=== PATIENT | male | born 1945 | race American Indian/Alaskan Native ===

== ENCOUNTER 2018-09-02 08:18 | Inpatient (IN) | payer BC, MEDICARE ==
--- NOTE | 2018-09-02 08:45 | ED PDOC ---
Arrival/HPI - General Time Seen by Provider: 09/02/18 08:29 Historian: Patient - History of Present Illness Narrative History of Present Illness (Text): 09/02/18 08:33 73 year old male, whose past medical history includes hypertension, who presents to the Emergency department complaining of "feeling weird". Patient notes chest pain. Patient recently came back from the [facility] and notes symptoms occurred after return. Patient denies any fever, chills, shortness of breath, nausea, vomiting, diarrhea, back pain, neck pain, headache, dizziness, or any other complaints. Time/Duration: < week Symptom Onset: Gradual Symptom Course: Unchanged Activities at Onset: Light Context: Home Past Medical History - Provider Review Nursing Documentation Reviewed: Yes - Travel History Have you recently traveled outside [place] w/in the past 3 mons?: Yes If Yes, travel location?: [facility] Family/Social History - Physician Review Nursing Documentation Reviewed: Yes Allergies/Home Meds Allergies/Adverse Reactions: Allergies No Known Allergies Allergy (Verified 09/02/18 08:44) Home Medications: Home Meds Medication Instructions Recorded Confirmed Htn Med 09/02/18 Review of Systems - Physician Review All systems were reviewed & negative as marked: Yes - Review of Systems Constitutional: Normal Eyes: Normal ENT: Normal Respiratory: Normal. absent: SOB, Cough Cardiovascular: Chest Pain Gastrointestinal: Normal. absent: Abdominal Pain, Diarrhea, Nausea, Vomiting Genitourinary Male: Normal Musculoskeletal: Normal. absent: Back Pain, Neck Pain Skin: Normal. absent: Rash Neurological: Normal. absent: Headache, Dizziness Endocrine: Normal Hemo/Lymphatic: Normal Psychiatric: Normal Physical Exam Pulse: Tachycardic - Systems Exam Head: Present: Atraumatic, Normocephalic Pupils: Present: PERRL Extroacular Muscles: Present: EOMI Conjunctiva: Present: Normal Mouth: Present: Moist Mucous Membranes Neck: Present: Normal Range of Motion Respiratory/Chest: Present: Clear to Auscultation, Good Air Exchange. No: Respiratory Distress, Accessory Muscle Use Cardiovascular: Present: Regular Rate and Rhythm, Normal S1, S2. No: Murmurs Abdomen: No: Tenderness, Distention, Peritoneal Signs Back: Present: Normal Inspection Upper Extremity: Present: Normal Inspection. No: Cyanosis, Edema Lower Extremity: Present: Normal Inspection. No: Edema Neurological: Present: GCS=15, CN II-XII Intact, Speech Normal Skin: Present: Warm, Dry, Normal Color. No: Rashes Psychiatric: Present: Alert, Oriented x 3, Normal Insight, Normal Concentration Medical Decision Making ED Course and Treatment: 09/02/18 08:45 Impression: 73 year old male presents to the Emergency department complaining of 'feeling weird" since return from [facility]. Plan: -- EKG -- Aspirin -- CXR -- Cardizem -- Heparin -- UA -- Caridac ISO -- CT Head -- Reassess and disposition Progress Notes: EKG reviewed, shows tachycardia A flutter at 134 bpm. 09/02/18 09:39 CT Head reviewed, shows: IMPRESSION: No acute intracranial pathology. 09/02/18 09:53 CXR reviewed, shows: IMPRESSION: No active disease. - Scribe Statement The provider has reviewed the documentation as recorded by the Scribmelissa Larson All medical record entries made by the Scribmelissa were at my direction and personally dictated by me. I have reviewed the chart and agree that the record accurately reflects my personal performance of the history, physical exam, medical decision making, and the department course for this patient. I have also personally directed, reviewed, and agree with the discharge instructions and disposition.
[2018-09-02 08:50] LABS: BASO # 0.02 K/mm3 (0.0-2.0); BASO % 0.2 % (0.0-3.0); EOS # 0.1 (0.0-0.7); EOS % 0.8 % (1.5-5.0); GRAN # 8.38 (1.4-6.5); GRAN % 64.4 % (50.0-68.0); HEMOGLOBIN 16.1 g/dL (14.0-18.0); LYMPH # 2.7 (1.2-3.4); LYMPH % 20.5 % (22.0-35.0); MEAN CELL VOLUME 89.2 fl (80.0-105.0); MEAN CORPUSCULAR HEMOGLOBIN 29.5 pg (25.0-35.0); MEAN CORPUSCULAR HGB CONC 33.1 g/dl (31.0-37.0); MONO # 1.8 (0.1-0.6); MONO % 14.1 % (1.0-6.0); RBC 5.45 10^6/uL (3.5-6.1); RED CELL DISTRIBUTION WIDTH 13.7 % (11.5-14.5)
[2018-09-02 08:58] LABS: INR 1.12; PROTHROMBIN TIME 12.9 SECONDS (9.4-12.5)
[2018-09-02 09:03] LABS: ALBUMIN 4.1 g/dL (3.0-4.8); CALCIUM 9.4 mg/dL (8.4-10.5)
[2018-09-02 09:22] LABS: TROPONIN I 4.93 ng/mL
--- NOTE | 2018-09-02 09:35 | CT ---
Date of service: 09/02/2018 PROCEDURE: CT HEAD WITHOUT CONTRAST. HISTORY: martinez COMPARISON: None available. TECHNIQUE: Axial computed tomography images were obtained through the head/brain without intravenous contrast. Radiation dose: Total exam DLP = 936.72 mGy-cm. This CT exam was performed using one or more of the following dose reduction techniques: Automated exposure control, adjustment of the mA and/or kV according to patient size, and/or use of iterative reconstruction technique. FINDINGS: HEMORRHAGE: No intracranial hemorrhage. BRAIN: No mass effect or edema. Atrophy. Chronic microvascular ischemic changes. VENTRICLES: Unremarkable. No hydrocephalus. CALVARIUM: Unremarkable. PARANASAL SINUSES: Unremarkable as visualized. No significant inflammatory changes. MASTOID AIR CELLS: Unremarkable as visualized. No inflammatory changes. OTHER FINDINGS: None. IMPRESSION: No acute intracranial pathology.
[2018-09-02 09:42] LABS: URINE BILIRUBIN NEGATIVE (NEGATIVE); URINE BLOOD MODERATE (NEGATIVE); URINE GLUCOSE (UA) NEGATIVE (NEGATIVE); URINE LEUKOCYTE ESTERASE NEGATIVE Leu/uL (NEGATIVE); URINE PROTEIN 100 mg/dL (<30 mg/dL); URINE UROBILINOGEN 0.2 E.U./dL (<1 E.U./dL)
--- NOTE | 2018-09-02 09:43 | RAD ---
Date of service: 09/02/2018 HISTORY: cp COMPARISON: No prior. FINDINGS: LUNGS: No active pulmonary disease. PLEURA: No significant pleural effusion identified, no pneumothorax apparent. CARDIOVASCULAR: Aortic atherosclerotic calcifications. Cardiomediastinal silhouette stably enlarged OSSEOUS STRUCTURES: Spinal degenerative changes. VISUALIZED UPPER ABDOMEN: Normal. OTHER FINDINGS: None. IMPRESSION: No active disease.
[2018-09-02] MEDS ORDERED: Heparin25000 units/250ml 1/2NS 25,000 UNITS/250 ML BAG IV SCH ×2 (09:45→10:00)
[2018-09-02 09:48] LABS: URINE COLOR YELLOW (YELLOW)
[2018-09-02 09:51] LABS: URINE APPEARANCE CLEAR (CLEAR); URINE BACTERIA FEW /hpf; URINE EPITHELIAL CELLS 0 - 2 /hpf (0-5); URINE WBC 0 - 2 /hpf (0-6)
--- NOTE | 2018-09-02 10:05 | CP.PCM.HP ---
<BrianaRo soliman - Last Filed: 09/02/18 10:51> History of Present Illness - History of Present Illness History of Present Illness: H&P for HospitalistGrabiel PGY3 This is a 73yo M with past medical history of Hypertension who came to emergency department for "not feeling right" since Monday. Patient reports that he has not been feeling right, but has been worse last night. He had a rising abdominal pain, R sided chest pain and lightheadedness. He has never had those symptoms before. Patient states he took 2 baby aspirin last night without any help. He denies shortness of breath, nausea/vomiting/diarrhea, numbness/tingling, dysuria/hematuria, fever or chills. Patient was recently on trip to [facility] and came back 1 week ago. Patient reports he is compliant with his medications and has not seen a plant wrapper in the past. Past medical history: HTN Past surgical history: Denies Home meds: [id number]-Byzdxrhlka combo pill (06-28-40) Allergies: NKDA Social history: Used to smoke cigarettes, now smokes 1 black&graham daily, drinks 1-2 mixed drink of white rum daily, denies drug use. Lives with family. 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 siblings are healthy PMD: Dr. Dorantes (hasn't seen for after he ) Pharm: Ayleen Seaman ([id number]) Present on Admission - Present on Admission Any Indicators Present on Admission: No Review of Systems - Review of Systems All systems: reviewed and no additional remarkable complaints except Review of Systems: 12 point ROS reviewed as per HPI and is otherwise negative. Past Patient History - Past Social History Smoking Status: Never Smoked - CARDIAC Hx Hypertension: Yes - PSYCHIATRIC Hx Substance Use: No - SURGICAL HISTORY Hx Surgeries: No Meds Allergies/Adverse Reactions: Allergies Allergy/AdvReac Type Severity Reaction Status Date / Time No Known Allergies Allergy Verified 09/02/18 08:44 Physical Exam - Constitutional Appears: No Acute Distress - Head Exam Head Exam: ATRAUMATIC, NORMAL INSPECTION, NORMOCEPHALIC - Eye Exam Eye Exam: Normal appearance, PERRL Pupil Exam: NORMAL ACCOMODATION - ENT Exam ENT Exam: Mucous Membranes Moist - Neck Exam Neck exam: Positive for: Normal Inspection - Respiratory Exam Respiratory Exam: Clear to Auscultation Bilateral, NORMAL BREATHING PATTERN. absent: Rales, Rhonchi, Wheezes - Cardiovascular Exam Cardiovascular Exam: Tachycardia, Irregular Rhythm, +S1, +S2. absent: Gallop, Rubs, Systolic Murmur - GI/Abdominal Exam GI & Abdominal Exam: Normal Bowel Sounds, Soft. absent: Guarding, Mass, Rebo und, Rigid, Tenderness - Extremities Exam Extremities exam: Positive for: full ROM, normal capillary refill, normal inspection, pedal pulses present. Negative for: calf tenderness, pedal edema - Neurological Exam Neurological exam: Alert, CN II-XII Intact, Oriented x3 - Psychiatric Exam Psychiatric exam: Normal Affect, Normal Mood - Skin Skin Exam: Dry, Intact, Warm Results - Vital Signs Recent Vital Signs: Last Vital Signs Temp 98.0 F 09/02/18 08:34 Pulse 104 H 09/02/18 09:59 Resp 20 09/02/18 09:59 BP 127/80 09/02/18 09:59 Pulse Ox 98 09/02/18 09:59 - Labs Result Diagrams: 09/02/18 08:40 09/02/18 08:40 Labs: Laboratory Results - last 24 hr 09/02/18 09/02/18 09/02/18 08:40 08:40 08:40 WBC 13.0 H RBC 5.45 Hgb 16.1 Hct 48.6 MCV 89.2 MCH 29.5 MCHC 33.1 RDW 13.7 Plt Count 195 MPV 11.0 Gran % 64.4 Lymph % (Auto) 20.5 L [place] % (Auto) 14.1 H Eos % (Auto) 0.8 L Baso % (Auto) 0.2 Gran # 8.38 H Lymph # (Auto) 2.7 [place] # (Auto) 1.8 H Eos # (Auto) 0.1 Baso # (Auto) 0.02 PT 12.9 H INR 1.12 APTT 31.0 Sodium 137 Potassium 4.3 Chloride 102 Carbon Dioxide 29 Anion Gap 11 BUN 22 H Creatinine 1.6 H Est GFR ( Amer) 52 Est GFR (Non-Af Amer) 43 Random Glucose 160 H Calcium 9.4 Magnesium 2.2 Total Bilirubin 0.8 AST 50 ALT 32 Alkaline Phosphatase 103 Lactate Dehydrogenase 629 Total Creatine Kinase 119 Troponin I 4.93 H* Total Protein 8.1 Albumin 4.1 Globulin 4.0 Albumin/Globulin Ratio 1.0 L Urine Color Urine Appearance Urine pH Ur Specific Bradley Urine Protein Urine Glucose (UA) Urine Ketones Urine Blood Urine Nitrate Urine Bilirubin Urine Urobilinogen Ur Leukocyte Esterase Urine RBC Urine WBC Ur Epithelial Cells Urine Bacteria 09/02/18 09:30 WBC RBC Hgb Hct MCV MCH MCHC RDW Plt Count MPV Gran % Lymph % (Auto) [place] % (Auto) Eos % (Auto) Baso % (Auto) Gran # Lymph # (Auto) [place] # (Auto) Eos # (Auto) Baso # (Auto) PT INR APTT Sodium Potassium Chloride Carbon Dioxide Anion Gap BUN Creatinine Est GFR ( Amer) Est GFR (Non-Af Amer) Random Glucose Calcium Magnesium Total Bilirubin AST ALT Alkaline Phosphatase Lactate Dehydrogenase Total Creatine Kinase Troponin I Total Protein Albumin Globulin Albumin/Globulin Ratio Urine Color Yellow Urine Appearance Clear Urine pH 6.0 Ur Specific Bradley >= 1.030 Urine Protein 100 H Urine Glucose (UA) Negative Urine Ketones Negative Urine Blood Moderate H Urine Nitrate Negative Urine Bilirubin Negative Urine Urobilinogen 0.2 Ur Leukocyte Esterase Negative Urine RBC 5 - 10 H Urine WBC 0 - 2 Ur Epithelial Cells 0 - 2 Urine Bacteria Few Assessment & Plan - Assessment and Plan (Free Text) Assessment: This is a 73yo M with past medical history of Hypertension who was admitted for 1. NSTEMI - can be secondary to new onset a.flutter 2. A.flutter (New onset) 3. BRENDA (Mild) - baseline Cr unknown Plan: Labs and imaging reviewed. Head CT negative. EKG showed a.flutter with HR of 134. He was given 1 dose Cardizem IVP in emergency department. Cardiology consulted. Spoke with Dr. Berumen will start patient on Heparin drip. Will trend troponin. Echo, lipid panel, A1c, and thyroid studies ordered. Lopressor prn HR >120 with BP holding parameters. Will continue ASA 81mg. Tylenol prn headache. Patient is NPO at this time and will continue to monitor Cr. Patient was accepted to ICU for further monitoring. Case seen, reviewed and discussed with Dr. Malik Mchugh PGY3 - Date & Time Date: 09/02/18 Time: 11:04 <Jad Gan - Last Filed: 09/02/18 17:05> Results - Vital Signs Recent Vital Signs: Last Vital Signs Temp 100.7 F H 09/02/18 13:27 Pulse 100 H 09/02/18 13:28 Resp 18 09/02/18 11:40 BP 148/80 09/02/18 13:28 Pulse Ox 97 09/02/18 11:04 - Labs Result Diagrams: 09/02/18 08:40 09/02/18 08:40 Labs: Laboratory Results - last 24 hr 09/02/18 09/02/18 09/02/18 08:40 08:40 08:40 WBC 13.0 H RBC 5.45 Hgb 16.1 Hct 48.6 MCV 89.2 MCH 29.5 MCHC 33.1 RDW 13.7 Plt Count 195 MPV 11.0 Gran % 64.4 Lymph % (Auto) 20.5 L [place] % (Auto) 14.1 H Eos % (Auto) 0.8 L Baso % (Auto) 0.2 Gran # 8.38 H Lymph # (Auto) 2.7 [place] # (Auto) 1.8 H Eos # (Auto) 0.1 Baso # (Auto) 0.02 PT 12.9 H INR 1.12 APTT 31.0 Sodium 137 Potassium 4.3 Chloride 102 Carbon Dioxide 29 Anion Gap 11 BUN 22 H Creatinine 1.6 H Est GFR ( Amer) 52 Est GFR (Non-Af Amer) 43 POC Glucose (mg/dL) Random Glucose 160 H Hemoglobin A1c Calcium 9.4 Magnesium 2.2 Total Bilirubin 0.8 AST 50 ALT 32 Alkaline Phosphatase 103 Lactate Dehydrogenase 629 Total Creatine Kinase 119 Troponin I 4.93 H* Total Protein 8.1 Albumin 4.1 Globulin 4.0 Albumin/Globulin Ratio 1.0 L Triglycerides Cholesterol LDL Cholesterol Direct HDL Cholesterol Free T4 TSH 3rd Generation Urine Color Urine Appearance Urine pH Ur Specific Bradley Urine Protein Urine Glucose (UA) Urine Ketones Urine Blood Urine Nitrate Urine Bilirubin Urine Urobilinogen Ur Leukocyte Esterase Urine RBC Urine WBC Ur Epithelial Cells Urine Bacteria Alcohol, Quantitative 09/02/18 09/02/18 09/02/18 08:40 08:40 08:40 WBC RBC Hgb Hct MCV MCH MCHC RDW Plt Count MPV Gran % Lymph % (Auto) [place] % (Auto) Eos % (Auto) Baso % (Auto) Gran # Lymph # (Auto) [place] # (Auto) Eos # (Auto) Baso # (Auto) PT INR APTT Sodium Potassium Chloride Carbon Dioxide Anion Gap BUN Creatinine Est GFR ( Amer) Est GFR (Non-Af Amer) POC Glucose (mg/dL) Random Glucose Hemoglobin A1c 6.5 Calcium Magnesium Total Bilirubin AST ALT Alkaline Phosphatase Lactate Dehydrogenase Total Creatine Kinase Troponin I Total Protein Albumin Globulin Albumin/Globulin Ratio Triglycerides 76 Cholesterol 157 LDL Cholesterol Direct 84 HDL Cholesterol 40 Free T4 1.62 TSH 3rd Generation 1.77 Urine Color Urine Appearance Urine pH Ur Specific Bradley Urine Protein Urine Glucose (UA) Urine Ketones Urine Blood Urine Nitrate Urine Bilirubin Urine Urobilinogen Ur Leukocyte Esterase Urine RBC Urine WBC Ur Epithelial Cells Urine Bacteria Alcohol, Quantitative 09/02/18 09/02/18 09/02/18 08:40 09:30 15:31 WBC RBC Hgb Hct MCV MCH MCHC RDW Plt Count MPV Gran % Lymph % (Auto) [place] % (Auto) Eos % (Auto) Baso % (Auto) Gran # Lymph # (Auto) [place] # (Auto) Eos # (Auto) Baso # (Auto) PT INR APTT 56.5 H Sodium Potassium Chloride Carbon Dioxide Anion Gap BUN Creatinine Est GFR ( Amer) Est GFR (Non-Af Amer) POC Glucose (mg/dL) Random Glucose Hemoglobin A1c Calcium Magnesium Total Bilirubin AST ALT Alkaline Phosphatase Lactate Dehydrogenase Total Creatine Kinase Troponin I Total Protein Albumin Globulin Albumin/Globulin Ratio Triglycerides Cholesterol LDL Cholesterol Direct HDL Cholesterol Free T4 TSH 3rd Generation Urine Color Yellow Urine Appearance Clear Urine pH 6.0 Ur Specific Bradley >= 1.030 Urine Protein 100 H Urine Glucose (UA) Negative Urine Ketones Negative Urine Blood Moderate H Urine Nitrate Negative Urine Bilirubin Negative Urine Urobilinogen 0.2 Ur Leukocyte Esterase Negative Urine RBC 5 - 10 H Urine WBC 0 - 2 Ur Epithelial Cells 0 - 2 Urine Bacteria Few Alcohol, Quantitative < 10 09/02/18 09/02/18 15:31 16:18 WBC RBC Hgb Hct MCV MCH MCHC RDW Plt Count MPV Gran % Lymph % (Auto) [place] % (Auto) Eos % (Auto) Baso % (Auto) Gran # Lymph # (Auto) [place] # (Auto) Eos # (Auto) Baso # (Auto) PT INR APTT Sodium Potassium Chloride Carbon Dioxide Anion Gap BUN Creatinine Est GFR ( Amer) Est GFR (Non-Af Amer) POC Glucose (mg/dL) 134 H Random Glucose Hemoglobin A1c Calcium Magnesium Total Bilirubin AST ALT Alkaline Phosphatase Lactate Dehydrogenase Total Creatine Kinase Troponin I 3.70 H* D Total Protein Albumin Globulin Albumin/Globulin Ratio Triglycerides Cholesterol LDL Cholesterol Direct HDL Cholesterol Free T4 TSH 3rd Generation Urine Color Urine Appearance Urine pH Ur Specific Bradley Urine Protein Urine Glucose (UA) Urine Ketones Urine Blood Urine Nitrate Urine Bilirubin Urine Urobilinogen Ur Leukocyte Esterase Urine RBC Urine WBC Ur Epithelial Cells Urine Bacteria Alcohol, Quantitative Attending/Attestation - Attestation I have personally seen and examined this patient.: Yes I have fully participated in the care of the patient.: Yes I have reviewed all pertinent clinical information: Yes Notes (Text): 09/02/18 17:01 attending note; Patient seen and examined with resident In ER. Patient's family by the bedside. Patient is alert and awake. Currently denies any chest pain, shortness of breath and palpitations. Denies any nausea, vomiting. Denies any fevers, chills. Denies any urinary, bowel symptoms. Patient is a 73 -year-old male with past medical history of Hypertension who came to emergency department for "not feeling right" since Monday. He had a rising abdominal pain, R sided chest pain and lightheadedness. found to have rapid atrial fibrillation and elevated troponin in the ER. 1. Rapid atrial fibrillation; new onset. IV Cardizem given. Continue to monitor the heart rate closely. Started on amiodarone. 2. Elevated troponin with EKG changes; EKG reviewed with plant wrapper in detail. Continue aspirin, Plavix, on IV heparin drip. 3. Hypertension; continue metoprolol, Cozaar. 4. elevated creatinine;Baseline creatinine level is not known. Possible acute renal insufficiency. Started on IV fluids. Monitor closely. Case discussed with plant wrapper in detail. Plan for Cardiac catheterization in a.m. upon discharge the patient will follow-up with PMD .
[2018-09-02] MEDS ORDERED: Metoprolol 1 mg/ml Inj IVP PRN (10:48)
[2018-09-02 10:59] LABS: HDL CHOLESTEROL 40 mg/dL (29-60)
[2018-09-02 11:09] LABS: LDL CHOLESTEROL 84 mg/dL (0-129)
[2018-09-02 11:20] LABS: FREE T4 1.62 ng/dL (0.78-2.19)
--- NOTE | 2018-09-02 12:24 | CP.PCM.CON ---
<Lucio Clay - Last Filed: 09/02/18 13:02> History of Present Illness - History of Present Illness History of Present Illness: Lucio Clay, PGY-1 Consult Note for ICU CC: Chest Pain and Head numbness HPI: Mr. Quiroz is a 73yo M with past medical history of essential hypertension currently medicated (and compliant) who came to the ED after experiencing R sided substernal chest pain at 4 am this morning when he awoke to urinate. Patient denies radiation and has never had these symptoms before. Patient states he took 2 baby aspirin overnight which did not resolve the chest pain. Patient states that he has had associated joint pains and experiencing head numbness since Monday, but has never been seen by a push button switch assembler. Patient denies familial cardiac history. Currently, patient complains of intermittent constipation but denies shortness of breath, nausea/vomiting/diarrhea, numb ness/tingling, dysuria/hematuria, fever, chills, headache, blurry vision. Patient recently returned from a trip to [facility] last week, at which point he felt fine. Multiple family members present at bedside to help fill in information as needed. Past medical history: HTN Past surgical history: Denies Home meds: [id number] combo pill (06-28-40) Allergies: NKDA Social history: Used to smoke cigarettes for >30 years, now smokes 1 black&graham daily, drinks 2-3 mixed shots daily, denies drug use. Lives with family. 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 PMD: Dr. Dorantes (hasn't seen for after he ) Pharm: Ayleen Seaman ([address]) Review of Systems - Review of Systems Review of Systems: 12 point ROS completed and negative except as described in HPI. Past Patient History - Past Social History Smoking Status: Never Smoked - CARDIAC Hx Hypertension: Yes - PSYCHIATRIC Hx Substance Use: No - SURGICAL HISTORY Hx Surgeries: No Meds Allergies/Adverse Reactions: Allergies Allergy/AdvReac Type Severity Reaction Status Date / Time No Known Allergies Allergy Verified 09/02/18 08:44 - Medications Medications: Current Medications Acetaminophen (Tylenol 325mg Tab) 650 mg PO Q6H PRN PRN Reason: Headache Aspirin (Aspirin Chewable) 81 mg PO DAILY [facility] Heparin Sodium/Sodium Chloride (Heparin 10262 Units/250ml 1/2 Normal Saline) 25,000 units in 250 mls @ 11.235 mls/hr IV .[id number] [facility]; Protocol Last Admin: 09/02/18 10:06 Dose: 11.235 mls/hr Metoprolol Tartrate (Lopressor) 5 mg IVP Q6H PRN PRN Reason: Heart rate Last Admin: 09/02/18 11:00 Dose: 5 mg Physical Exam - Additional Findings Additional findings: - Constitutional Appears: No Acute Distress - Head Exam Head Exam: ATRAUMATIC, NORMAL INSPECTION, NORMOCEPHALIC - Eye Exam Eye Exam: Normal appearance, PERRL Pupil Exam: NORMAL ACCOMODATION - ENT Exam ENT Exam: Mucous Membranes Moist - Neck Exam Neck exam: Positive for: Normal Inspection - Respiratory Exam Respiratory Exam: Clear to Auscultation Bilateral, NORMAL BREATHING PATTERN. absent: Rales, Rhonchi, Wheezes - Cardiovascular Exam Cardiovascular Exam: Tachycardia, Irregular Rhythm, +S1, +S2. absent: Gallop, Rubs, Systolic Murmur - GI/Abdominal Exam GI & Abdominal Exam: Normal Bowel Sounds, Soft. absent: Guarding, Mass, Rebound, Rigid, Tenderness - Extremities Exam Extremities exam: Positive for: full ROM, normal capillary refill, normal inspection, pedal pulses present. Negative for: calf tenderness, pedal edema - Neurological Exam Neurological exam: Alert, CN II-XII Intact, Oriented x3 - Psychiatric Exam Psychiatric exam: Normal Affect, Normal Mood - Skin Skin Exam: Dry, Intact, Warm Results - Vital Signs Recent Vital Signs: Last Vital Signs Temp 98.0 F 09/02/18 08:34 Pulse 108 H 09/02/18 11:04 Resp 20 09/02/18 11:04 BP 150/77 09/02/18 11:04 Pulse Ox 97 09/02/18 11:04 - Labs Result Diagrams: 09/02/18 08:40 09/02/18 08:40 Labs: Laboratory Results - last 24 hr 09/02/18 09/02/18 09/02/18 08:40 08:40 08:40 WBC 13.0 H RBC 5.45 Hgb 16.1 Hct 48.6 MCV 89.2 MCH 29.5 MCHC 33.1 RDW 13.7 Plt Count 195 MPV 11.0 Gran % 64.4 Lymph % (Auto) 20.5 L [place] % (Auto) 14.1 H Eos % (Auto) 0.8 L Baso % (Auto) 0.2 Gran # 8.38 H Lymph # (Auto) 2.7 [place] # (Auto) 1.8 H Eos # (Auto) 0.1 Baso # (Auto) 0.02 PT 12.9 H INR 1.12 APTT 31.0 Sodium 137 Potassium 4.3 Chloride 102 Carbon Dioxide 29 Anion Gap 11 BUN 22 H Creatinine 1.6 H Est GFR ( Amer) 52 Est GFR (Non-Af Amer) 43 Random Glucose 160 H Calcium 9.4 Magnesium 2.2 Total Bilirubin 0.8 AST 50 ALT 32 Alkaline Phosphatase 103 Lactate Dehydrogenase 629 Total Creatine Kinase 119 Troponin I 4.93 H* Total Protein 8.1 Albumin 4.1 Globulin 4.0 Albumin/Globulin Ratio 1.0 L Triglycerides Cholesterol LDL Cholesterol Direct HDL Cholesterol Free T4 TSH 3rd Generation Urine Color Urine Appearance Urine pH Ur Specific [place] Urine Protein Urine Glucose (UA) Urine Ketones Urine Blood Urine Nitrate Urine Bilirubin Urine Urobilinogen Ur Leukocyte Esterase Urine RBC Urine WBC Ur Epithelial Cells Urine Bacteria 09/02/18 09/02/18 09/02/18 08:40 08:40 09:30 WBC RBC Hgb Hct MCV MCH MCHC RDW Plt Count MPV Gran % Lymph % (Auto) [place] % (Auto) Eos % (Auto) Baso % (Auto) Gran # Lymph # (Auto) [place] # (Auto) Eos # (Auto) Baso # (Auto) PT INR APTT Sodium Potassium Chloride Carbon Dioxide Anion Gap BUN Creatinine Est GFR ( Amer) Est GFR (Non-Af Amer) Random Glucose Calcium Magnesium Total Bilirubin AST ALT Alkaline Phosphatase Lactate Dehydrogenase Total Creatine Kinase Troponin I Total Protein Albumin Globulin Albumin/Globulin Ratio Triglycerides 76 Cholesterol 157 LDL Cholesterol Direct 84 HDL Cholesterol 40 Free T4 1.62 TSH 3rd Generation 1.77 Urine Color Yellow Urine Appearance Clear Urine pH 6.0 Ur Specific [place] >= 1.030 Urine Protein 100 H Urine Glucose (UA) Negative Urine Ketones Negative Urine Blood Moderate H Urine Nitrate Negative Urine Bilirubin Negative Urine Urobilinogen 0.2 Ur Leukocyte Esterase Negative Urine RBC 5 - 10 H Urine WBC 0 - 2 Ur Epithelial Cells 0 - 2 Urine Bacteria Few Assessment & Plan - Assessment and Plan (Free Text) Assessment: Mr. Quiroz is a 73 F with PMHx of HTN who presents with irregular cardiac rhythm and NSTEMI. Neuro 09/02/[address] negative: No acute intracranial pathology. - AAOx3 - CIWA protocol 2/2 chronic ETOH use - Aspiration precautions - continue to monitor Cardio 09/02/18 CXR shows Aortic atherosclerotic calcifications. Cardiomediastinal silhouette stably enlarged 09/02/18 EKG showed Atrial flutter with HR of 134. Given 20 mg Cardizem IVP and ASA 325 mg in ED - Cardiology consulted. Dr. Berumen - plan for cardiac cath tomorrow morning - Trop 4.93, continue to trend x2 - Heparin drip until 2 am tomorrow morning - Echo pending - Lipid panel, A1c, and thyroid studies pending - Lopressor 50 mg BID with BP holding parameters. - ASA 81mg, Plavix 75 mg, Lipitor 20 mg PO, Losartan 25 mg PO - Amiodarone 400 TID for A. flutter - UDS, Serum ETOH pending - Tylenol 650 q6 PRN for pain control - F/u coag studies - maintain MAP > 65 Nephro - BRENDA 25/09.6 - baseline unknown - UDS pending - Hold all nephrotoxic meds - Begin NS @ 100 cc/hr in AM - continue to monitor in AM CMP Pulm - HOB>35 degrees - Maintain O2> 92% PPx - GI: Pepcid 40 mg PO at bedtime - DVT: SCDs, Hep drip Patient seen, case reviewed and plan approved by Dr. Ar Cardona. Lucio Clay, PGY-1 <Lele Cardona - Last Filed: 09/02/18 17:33> Meds - Medications Medications: Current Medications Acetaminophen (Tylenol 325mg Tab) 650 mg PO Q6H PRN PRN Reason: Headache Last Admin: 09/02/18 13:27 Dose: 650 mg Alprazolam (Xanax) 0.5 mg PO ONCE PRN; Protocol PRN Reason: Anxiety Amiodarone HCl (Cordarone) 400 mg PO TID [facility] Stop: 09/03/18 23:59 Last Admin: 09/02/18 17:13 Dose: 400 mg Amiodarone HCl (Cordarone) 200 mg PO DAILY [facility] Aspirin (Aspirin Chewable) 81 mg PO DAILY [facility] Atorvastatin Calcium (Lipitor) 20 mg PO DIN [facility] Last Admin: 09/02/18 17:12 Dose: 20 mg Clopidogrel Bisulfate (Plavix) 75 mg PO DAILY [facility] Famotidine (Pepcid) 40 mg PO HS [facility] Heparin Sodium/Sodium Chloride (Heparin 60433 Units/250ml 1/2 Normal Saline) 25,000 units in 250 mls @ 11.235 mls/hr IV .[id number] [facility]; Protocol Stop: 09/03/18 02:00 Last Admin: 09/02/18 10:06 Dose: 11.235 mls/hr Sodium Chloride (Sodium Chloride 0.9%) 1,000 mls @ 100 mls/hr IV .Q10H [facility] Insulin Human Regular (Humulin R Low) 0 units SC ACHS [facility]; Protocol Last Admin: 09/02/18 17:11 Dose: Not Given Losartan Potassium (Cozaar) 25 mg PO DAILY [facility] Metoprolol Tartrate (Lopressor) 5 mg IVP Q6H PRN PRN Reason: Heart rate Last Admin: 09/02/18 11:00 Dose: 5 mg Metoprolol Tartrate (Lopressor) 50 mg PO BID [facility] Last Admin: 09/02/18 17:12 Dose: 50 mg Results - Vital Signs Recent Vital Signs: Last Vital Signs Temp 100.7 F H 09/02/18 13:27 Pulse 98 H 09/02/18 17:13 Resp 18 09/02/18 11:40 BP 133/96 H 09/02/18 17:13 Pulse Ox 97 09/02/18 11:04 - Labs Result Diagrams: 09/02/18 08:40 09/02/18 08:40 Labs: Laboratory Results - last 24 hr 09/02/18 09/02/18 09/02/18 08:40 08:40 08:40 WBC 13.0 H RBC 5.45 Hgb 16.1 Hct 48.6 MCV 89.2 MCH 29.5 MCHC 33.1 RDW 13.7 Plt Count 195 MPV 11.0 Gran % 64.4 Lymph % (Auto) 20.5 L [place] % (Auto) 14.1 H Eos % (Auto) 0.8 L Baso % (Auto) 0.2 Gran # 8.38 H Lymph # (Auto) 2.7 [place] # (Auto) 1.8 H Eos # (Auto) 0.1 Baso # (Auto) 0.02 PT 12.9 H INR 1.12 APTT 31.0 Sodium 137 Potassium 4.3 Chloride 102 Carbon Dioxide 29 Anion Gap 11 BUN 22 H Creatinine 1.6 H Est GFR ( Amer) 52 Est GFR (Non-Af Amer) 43 POC Glucose (mg/dL) Random Glucose 160 H Hemoglobin A1c Calcium 9.4 Magnesium 2.2 Total Bilirubin 0.8 AST 50 ALT 32 Alkaline Phosphatase 103 Lactate Dehydrogenase 629 Total Creatine Kinase 119 Troponin I 4.93 H* Total Protein 8.1 Albumin 4.1 Globulin 4.0 Albumin/Globulin Ratio 1.0 L Triglycerides Cholesterol LDL Cholesterol Direct HDL Cholesterol Free T4 TSH 3rd Generation Urine Color Urine Appearance Urine pH Ur Specific [place] Urine Protein Urine Glucose (UA) Urine Ketones Urine Blood Urine Nitrate Urine Bilirubin Urine Urobilinogen Ur Leukocyte Esterase Urine RBC Urine WBC Ur Epithelial Cells Urine Bacteria Alcohol, Quantitative 09/02/18 09/02/18 09/02/18 08:40 08:40 08:40 WBC RBC Hgb Hct MCV MCH MCHC RDW Plt Count MPV Gran % Lymph % (Auto) [place] % (Auto) Eos % (Auto) Baso % (Auto) Gran # Lymph # (Auto) [place] # (Auto) Eos # (Auto) Baso # (Auto) PT INR APTT Sodium Potassium Chloride Carbon Dioxide Anion Gap BUN Creatinine Est GFR ( Amer) Est GFR (Non-Af Amer) POC Glucose (mg/dL) Random Glucose Hemoglobin A1c 6.5 Calcium Magnesium Total Bilirubin AST ALT Alkaline Phosphatase Lactate Dehydrogenase Total Creatine Kinase Troponin I Total Protein Albumin Globulin Albumin/Globulin Ratio Triglycerides 76 Cholesterol 157 LDL Cholesterol Direct 84 HDL Cholesterol 40 Free T4 1.62 TSH 3rd Generation 1.77 Urine Color Urine Appearance Urine pH Ur Specific [place] Urine Protein Urine Glucose (UA) Urine Ketones Urine Blood Urine Nitrate Urine Bilirubin Urine Urobilinogen Ur Leukocyte Esterase Urine RBC Urine WBC Ur Epithelial Cells Urine Bacteria Alcohol, Quantitative 09/02/18 09/02/18 09/02/18 08:40 09:30 15:31 WBC RBC Hgb Hct MCV MCH MCHC RDW Plt Count MPV Gran % Lymph % (Auto) [place] % (Auto) Eos % (Auto) Baso % (Auto) Gran # Lymph # (Auto) [place] # (Auto) Eos # (Auto) Baso # (Auto) PT INR APTT 56.5 H Sodium Potassium Chloride Carbon Dioxide Anion Gap BUN Creatinine Est GFR ( Amer) Est GFR (Non-Af Amer) POC Glucose (mg/dL) Random Glucose Hemoglobin A1c Calcium Magnesium Total Bilirubin AST ALT Alkaline Phosphatase Lactate Dehydrogenase Total Creatine Kinase Troponin I Total Protein Albumin Globulin Albumin/Globulin Ratio Triglycerides Cholesterol LDL Cholesterol Direct HDL Cholesterol Free T4 TSH 3rd Generation Urine Color Yellow Urine Appearance Clear Urine pH 6.0 Ur Specific [place] >= 1.030 Urine Protein 100 H Urine Glucose (UA) Negative Urine Ketones Negative Urine Blood Moderate H Urine Nitrate Negative Urine Bilirubin Negative Urine Urobilinogen 0.2 Ur Leukocyte Esterase Negative Urine RBC 5 - 10 H Urine WBC 0 - 2 Ur Epithelial Cells 0 - 2 Urine Bacteria Few Alcohol, Quantitative < 10 09/02/18 09/02/18 15:31 16:18 WBC RBC Hgb Hct MCV MCH MCHC RDW Plt Count MPV Gran % Lymph % (Auto) [place] % (Auto) Eos % (Auto) Baso % (Auto) Gran # Lymph # (Auto) [place] # (Auto) Eos # (Auto) Baso # (Auto) PT INR APTT Sodium Potassium Chloride Carbon Dioxide Anion Gap BUN Creatinine Est GFR ( Amer) Est GFR (Non-Af Amer) POC Glucose (mg/dL) 134 H Random Glucose Hemoglobin A1c Calcium Magnesium Total Bilirubin AST ALT Alkaline Phosphatase Lactate Dehydrogenase Total Creatine Kinase Troponin I 3.70 H* D Total Protein Albumin Globulin Albumin/Globulin Ratio Triglycerides Cholesterol LDL Cholesterol Direct HDL Cholesterol Free T4 TSH 3rd Generation Urine Color Urine Appearance Urine pH Ur Specific [place] Urine Protein Urine Glucose (UA) Urine Ketones Urine Blood Urine Nitrate Urine Bilirubin Urine Urobilinogen Ur Leukocyte Esterase Urine RBC Urine WBC Ur Epithelial Cells Urine Bacteria Alcohol, Quantitative Addendum Addendum: 09/02/18 17:33 ICU Attending Addendum Patient seen and examined. Case reviewed on round with housestaff. Agree with resident note above with the following additions/exceptions: 73M with HTN present with headache found to be in rapid aflutter and have elevate TNI will need cardiac cath - cardio on board on hep drip would use cardizem drip if hr remains uncontrolled while awaiting cardio recs would also benefit from BB BRENDA unclear etio cont to monitor he may need renal protection pre-cath Rest of care as above Lele Cardona MD Pulmonary Critical Care and Sleep Medicine
[2018-09-02 13:17] VITALS: BMI 29.6
[2018-09-02] MEDS: Insulin Reg-LOW-Coverage SC SCH ×2 (17:11→23:00)
[2018-09-02] MEDS ORDERED: Acetylcysteine 20% Inhal Sol (30ml) PO ONE (18:06)
--- NOTE | 2018-09-02 20:20 | CARD ---
APPROVED REPORT Date of service: 09/02/2018 EKG Measurement Heart [id number] <Conclusion> Atrial flutter with variable AV block Left axis deviation Inferior infarct, age undetermined Abnormal ECG
--- NOTE | 2018-09-02 20:26 | CARD ---
APPROVED REPORT Date of service: 09/02/2018 EKG Measurement Heart [id number] <Conclusion> Atrial flutter with variable AV block Inferior infarct, age undetermined Abnormal ECG
--- NOTE | 2018-09-02 20:26 | CARD ---
APPROVED REPORT Date of service: 09/02/2018 EKG Measurement Heart [id number] <Conclusion> Atrial flutter with variable AV block Right ventricular hypertrophy Inferior infarct, age undetermined Abnormal ECG
--- NOTE | 2018-09-02 23:04 | CON ---
DATE: 09/02/2018 REASON FOR CONSULTATION AND FOLLOWUP: Atrial flutter, a new onset, possible non-ST segment myocardial infarction. BRIEF CLINICAL HISTORY: This is a 73-year-old male with past medical history significant for hypertension being followed by Dr. Dorantes and now taking himself medication without seeing a doctor for more than 6 months, came in to the emergency with complaint of funny sensation in the chest, found to be an atrial fibrillation and atrial flutter. Later on, the troponin is positive. The patient is now admitted to ICU. Denies any chest pain, shortness of breath, any palpitation. The patient has a lot of family member son, daughters, as at the bedside who states that recently he and came back 1 week ago and feel okay, but last office visit was not feeling okay and this morning again he is not feeling good, so came to the emergency room. Denies any specific chest pain. Denies any shortness of breath. Denies any palpitation. PAST MEDICAL HISTORY: Significant for hypertension. SOCIAL HISTORY: Used to smoke a pack, but quit, now smoke cigar. Used to drink very regularly alcohol. He says that he used to drink at least moderate amount. Denies any history of substance abuse. 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 FAMILY HISTORY: Noncontributory. Mother at the age of 90 with the diabetes. Father at the age of 76, not sure of his heart condition. CURRENT MEDICATION: The patient was taking a combination of hydrochlorothiazide, amlodipine and olmesartan. 10 mg of amlodipine, 25 mg of hydrochlorothiazide and olmesartan 40 mg daily is a combination pill. REVIEW OF SYSTEMS: As per HPI. PHYSICAL EXAMINATION: GENERAL: Height of the patient 5 feet 10 inches. Weight of the patient is 206 pounds. Body mass index 29.6kg/m2. VITAL SIGNS: Temperature afebrile, heart rate 106 and blood pressure 150/77. HEENT: PERRLA. Extraocular muscles intact. NECK: No carotid bruits or thyromegaly. CHEST: Clear to auscultation. HEART: S1 and S2, regular. ABDOMEN: Soft. EXTREMITIES: Clubbing and cyanosis, negative. EKG shows atrial flutter with terrible block. LABORATORY DATA: Blood workup, WBC 13, hemoglobin 16, hematocrit 48.6 and platelet count 195. Chemistry showed sodium 137, potassium 4.3, chloride 102, carbon dioxide 29, anion gap of 11, BUN 22, creatinine 1.6 and troponin 4.93. IMPRESSION: A 73-year-old male with past medical history significant for hypertension, diabetes, obesity admitted with new onset of atrial flutter, non-ST segment myocardial infarction. RECOMMENDATION: Started on heparin from ER. We will start beta-farideh, load with Plavix and aspirin. Discussed in length with the patient's family and he will proceed for cardiac catheterization tomorrow at 7:30. We will discontinue heparin at 2 a.m. The patient had some renal insufficiency. We will start IV fluids 60 mL to 100 mL an hour. Keep n.p.o. after 12 midnight. Risks, benefits, and alternative discussed with the patient and patient's family and will proceed for cardiac catheterization. Further recommend after cardiac catheterization. We will also start 40 of atorvastatin, beta-farideh, but we will start low dose of losartan, monitor renal function. Further recommendation after cardiac catheterization. We will get echo in the morning. Thank you Dr. Gan for an opportunity in taking care of your patient, Mahin Quiroz. Discussed with the family as well. Further recommendations after cardiac catheterization. Lorraine Berumen MD
[2018-09-03] MEDS ORDERED: Sodium Chloride 0.9% 500 ML IV SCH (01:00)
[2018-09-03] MEDS ORDERED: Acetylcysteine 20% Inhal Soln (4ml) PO ONE (06:00)
[2018-09-03] MEDS ORDERED: Sodium Chloride 0.9% 1,000 ML IV SCH (06:00)
[2018-09-03] MEDS ORDERED: Lidocaine 2% Inj (20ml) ONE (06:33)
[2018-09-03] MEDS ORDERED: Phenylephrine 10 mg/ml Inj ONE (06:34)
[2018-09-03] MEDS ORDERED: Verapamil 0 ML ONE (06:34)
[2018-09-03] MEDS ORDERED: Iohexol 350mgl/ml 50 ML ONE (06:35)
[2018-09-03] MEDS ORDERED: Nitroglycerin 50mg in D5W 0 MG/0 ML BOTTLE IV ONE (06:35)
[2018-09-03] MEDS ORDERED: Iodixanol 320 MG/ML 100 ML BOTTLE IV ONE (06:35)
[2018-09-03] MEDS ORDERED: Iodixanol 320 MG/ML 200 ML BOTTLE IV ONE (06:35)
[2018-09-03 07:02] LABS: BASO # 0.02 K/mm3 (0.0-2.0); BASO % 0.2 % (0.0-3.0); EOS # 0.1 (0.0-0.7); EOS % 1.2 % (1.5-5.0); GRAN # 5.91 (1.4-6.5); GRAN % 55.7 % (50.0-68.0); HEMOGLOBIN 15.6 g/dL (14.0-18.0); LYMPH # 3.5 (1.2-3.4); LYMPH % 32.5 % (22.0-35.0); MEAN CORPUSCULAR HEMOGLOBIN 29.7 pg (25.0-35.0); MEAN CORPUSCULAR HGB CONC 33.4 g/dl (31.0-37.0); MONO # 1.1 (0.1-0.6); MONO % 10.4 % (1.0-6.0); RBC 5.25 10^6/uL (3.5-6.1); RED CELL DISTRIBUTION WIDTH 13.7 % (11.5-14.5); WHITE BLOOD COUNT 10.6 10^3/uL (4.5-11.0)
[2018-09-03 07:08] LABS: INR 1.09; PARTIAL THROMBOPLASTIN TIME 33.7 Seconds (25.1-36.5); PROTHROMBIN TIME 12.5 SECONDS (9.4-12.5)
[2018-09-03 07:15] LABS: ALBUMIN 3.9 g/dL (3.0-4.8); ALT/SGPT 65 U/L (7-56); AST/SGOT 60 U/L (17-59); BLOOD UREA NITROGEN 26 mg/dL (7-21); CALCIUM 9.1 mg/dL (8.4-10.5); GFR NON-AFRICAN AMERICAN 50
[2018-09-03] MEDS ORDERED: Midazolam 2 MG/2 ML VIAL ONE ×2 (07:43→08:03)
--- NOTE | 2018-09-03 07:59 | CP.CCUPN ---
<Lucio Clay - Last Filed: 09/03/18 12:33> CCU Subjective - Physician Review Subjective (Free Text): Lucio Clay PGY-1 Progress Note for ICU Patient seen and evaluated at bedside. 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 No acute events reported overnight. Patient reportedly tolerated procedure well. Denies current chest pain, palpitations, shortness of breath, headaches, blurry vision. CCU Objective - Vital Signs / Intake & Output Vital Signs (Last 4 hours): Vital Signs Pulse BP 09/03/18 05:55 104 H 170/113 H Intake and Output (Last 8hrs): Intake & Output 09/02/18 09/03/18 09/03/18 22:59 06:59 14:59 Intake Total 527 Output Total 250 Balance 277 Intake: IV 77 Bilateral Antecubital 77 Oral 450 Output: Urine 250 Urine, Voided 250 Other: # Bowel Movements 0 - Physical Exam Head: Positive for: Atraumatic, Normocephalic Pupils: Positive for: PERRL Extroacular Muscles: Positive for: EOMI Conjunctiva: Positive for: Normal Mouth: Positive for: Moist Mucous Membranes Neck: Positive for: Normal Range of Motion Respiratory/Chest: Positive for: Clear to Auscultation, Good Air Exchange. Negative for: Respiratory Distress, Accessory Muscle Use Cardiovascular: Positive for: Normal S1, S2, Irregular Rhythm, Tachycardic. Negative for: Regular Rate and Rhythm, Murmurs Abdomen: Positive for: Other (R femoral cath site, bandaged, no hematoma or zack blood noted. 2+ pulses distally). Negative for: Tenderness, Distention, Peritoneal Signs Back: Positive for: Normal Inspection Upper Extremity: Positive for: Normal Inspection. Negative for: Cyanosis, Edema Lower Extremity: Positive for: Normal Inspection. Negative for: Edema Neurological: Positive for: GCS=15, CN II-XII Intact, Speech Normal Skin: Positive for: Warm, Dry, Normal Color. Negative for: Rashes Psychiatric: Positive for: Alert, Oriented x 3, Normal Insight, Normal Concentration - Medications Active Medications: Active Medications Generic Name Dose Route Start Last Admin Trade Name Freq PRN Reason Stop Dose Admin Acetaminophen 650 mg 09/02/18 10:55 09/02/18 22:49 Tylenol 325mg Tab PO 650 mg Q6H PRN Administration Headache Acetylcysteine 3 ml 09/03/18 18:00 Acetylcysteine 20% PO 09/04/18 10:01 BID ALICIA Alprazolam 0.5 mg 09/02/18 22:00 09/02/18 22:49 Xanax PO 0.5 mg ONCE PRN Administration Anxiety Protocol Amiodarone HCl 400 mg 09/02/18 14:00 09/02/18 17:13 Cordarone PO 09/03/18 23:59 400 mg TID ALICIA Administration Amiodarone HCl 200 mg 09/04/18 10:00 Cordarone PO DAILY ALICIA Aspirin 81 mg 09/03/18 10:00 09/03/18 05:59 Aspirin Chewable PO 81 mg DAILY ALICIA Administration Atorvastatin Calcium 20 mg 09/02/18 17:00 09/02/18 17:12 Lipitor PO 20 mg DIN ALICIA Administration Clopidogrel Bisulfate 75 mg 09/03/18 10:00 09/03/18 05:56 Plavix PO 75 mg DAILY ALICIA Administration Famotidine 40 mg 09/02/18 22:00 09/02/18 22:10 Pepcid PO 40 mg HS ALICIA Administration Sodium Chloride 1,000 mls @ 100 mls/hr 09/03/18 06:00 09/03/18 05:57 Sodium Chloride 0.9% IV 100 mls/hr .Q10H ALICIA Administration Insulin Human Regular 0 units 09/02/18 16:30 09/02/18 23:00 Humulin R Low SC Not Given A[facility]S [facility] Protocol Losartan Potassium 25 mg 09/03/18 10:00 Cozaar PO DAILY ALICIA Metoprolol Tartrate 5 mg 09/02/18 10:48 09/02/18 11:00 Lopressor IVP 5 mg Q6H PRN Administration Heart rate Metoprolol Tartrate 50 mg 09/02/18 18:00 09/03/18 05:55 Lopressor PO 50 mg BID ALICIA Administration - Patient Studies Lab Studies: Lab Studies 09/03/18 09/03/18 09/03/18 Range/Units 06:45 06:45 06:45 WBC 10.6 (4.5-11.0) 10^3/uL RBC 5.25 (3.5-6.1) 10^6/uL Hgb 15.6 (14.0-18.0) g/dL Hct 46.7 (42.0-52.0) % MCV 89.0 (80.0-105.0) fl MCH 29.7 (25.0-35.0) pg MCHC 33.4 (31.0-37.0) g/dl RDW 13.7 (11.5-14.5) % Plt Count 201 (120.0-450.0) 10^3/uL MPV 11.0 (7.0-11.0) fl Gran % 55.7 (50.0-68.0) % Lymph % (Auto) 32.5 (22.0-35.0) % [place] % (Auto) 10.4 H (1.0-6.0) % Eos % (Auto) 1.2 L (1.5-5.0) % Baso % (Auto) 0.2 (0.0-3.0) % Gran # 5.91 (1.4-6.5) Lymph # (Auto) 3.5 H (1.2-3.4) [place] # (Auto) 1.1 H (0.1-0.6) Eos # (Auto) 0.1 (0.0-0.7) Baso # (Auto) 0.02 (0.0-2.0) K/mm3 PT 12.5 (9.4-12.5) SECONDS INR 1.09 APTT 33.7 (25.1-36.5) Seconds Sodium 137 (132-148) mmol/L Potassium 4.0 (3.6-5.0) mmol/L Chloride 104 (98-107) mmol/L Carbon Dioxide 25 (21-33) mmol/L Anion Gap 13 (10-20) BUN 26 H (7-21) mg/dL Creatinine 1.4 (0.8-1.5) mg/dl Est GFR ( Amer) > 60 Est GFR (Non-Af Amer) 50 POC Glucose (mg/dL) (65-110) mg/dL Random Glucose 146 H (70-110) mg/dL Hemoglobin A1c (4.2-6.5) % Calcium 9.1 (8.4-10.5) mg/dL Magnesium (1.7-2.2) mg/dL Total Bilirubin 0.8 (0.2-1.3) mg/dL AST 60 H (17-59) U/L ALT 65 H (7-56) U/L Alkaline Phosphatase 124 (38-126) U/L Lactate Dehydrogenase (333-699) U/L Total Creatine Kinase (35-230) U/L Troponin I ng/mL Total Protein 7.8 (5.8-8.3) g/dL Albumin 3.9 (3.0-4.8) g/dL Globulin 3.9 gm/dL Albumin/Globulin Ratio 1.0 L (1.1-1.8) Triglycerides (35-160) mg/dL Cholesterol (130-200) mg/dL LDL Cholesterol Direct (0-129) mg/dL HDL Cholesterol (29-60) mg/dL Free T4 (0.78-2.19) ng/dL TSH 3rd Generation (0.46-4.68) mIU/mL Urine Color (YELLOW) Urine Appearance (CLEAR) Urine pH (4.7-8.0) Ur Specific [place] (1.005-1.035) Urine Protein (<30 mg/dL) mg/dL Urine Glucose (UA) (NEGATIVE) mg/dL Urine Ketones (NEGATIVE) mg/dL Urine Blood (NEGATIVE) Urine Nitrate (NEGATIVE) Urine Bilirubin (NEGATIVE) Urine Urobilinogen (<1 E.U./dL) E.U./dL Ur Leukocyte Esterase (NEGATIVE) Marcio/uL Urine RBC (0-2) /hpf Urine WBC (0-6) /hpf Ur Epithelial Cells (0-5) /hpf Urine Bacteria (NONE) /hpf Alcohol, Quantitative (0-10) mg/dL 09/02/18 09/02/18 09/02/18 Range/Units 21:50 21:50 16:18 WBC (4.5-11.0) 10^3/uL RBC (3.5-6.1) 10^6/uL Hgb (14.0-18.0) g/dL Hct (42.0-52.0) % MCV (80.0-105.0) fl MCH (25.0-35.0) pg MCHC (31.0-37.0) g/dl RDW (11.5-14.5) % Plt Count (120.0-450.0) 10^3/uL MPV (7.0-11.0) fl Gran % (50.0-68.0) % Lymph % (Auto) (22.0-35.0) % [place] % (Auto) (1.0-6.0) % Eos % (Auto) (1.5-5.0) % Baso % (Auto) (0.0-3.0) % Gran # (1.4-6.5) Lymph # (Auto) (1.2-3.4) [place] # (Auto) (0.1-0.6) Eos # (Auto) (0.0-0.7) Baso # (Auto) (0.0-2.0) K/mm3 PT (9.4-12.5) SECONDS INR APTT 61.8 H (25.1-36.5) Seconds Sodium (132-148) mmol/L Potassium (3.6-5.0) mmol/L Chloride (98-107) mmol/L Carbon Dioxide (21-33) mmol/L Anion Gap (10-20) BUN (7-21) mg/dL Creatinine (0.8-1.5) mg/dl Est GFR ( Amer) Est GFR (Non-Af Amer) POC Glucose (mg/dL) 134 H (65-110) mg/dL Random Glucose (70-110) mg/dL Hemoglobin A1c (4.2-6.5) % Calcium (8.4-10.5) mg/dL Magnesium (1.7-2.2) mg/dL Total Bilirubin (0.2-1.3) mg/dL AST (17-59) U/L ALT (7-56) U/L Alkaline Phosphatase (38-126) U/L Lactate Dehydrogenase (333-699) U/L Total Creatine Kinase (35-230) U/L Troponin I 2.79 H* D ng/mL Total Protein (5.8-8.3) g/dL Albumin (3.0-4.8) g/dL Globulin gm/dL Albumin/Globulin Ratio (1.1-1.8) Triglycerides (35-160) mg/dL Cholesterol (130-200) mg/dL LDL Cholesterol Direct (0-129) mg/dL HDL Cholesterol (29-60) mg/dL Free T4 (0.78-2.19) ng/dL TSH 3rd Generation (0.46-4.68) mIU/mL Urine Color (YELLOW) Urine Appearance (CLEAR) Urine pH (4.7-8.0) Ur Specific [place] (1.005-1.035) Urine Protein (<30 mg/dL) mg/dL Urine Glucose (UA) (NEGATIVE) mg/dL Urine Ketones (NEGATIVE) mg/dL Urine Blood (NEGATIVE) Urine Nitrate (NEGATIVE) Urine Bilirubin (NEGATIVE) Urine Urobilinogen (<1 E.U./dL) E.U./dL Ur Leukocyte Esterase (NEGATIVE) Marcio/uL Urine RBC (0-2) /hpf Urine WBC (0-6) /hpf Ur Epithelial Cells (0-5) /hpf Urine Bacteria (NONE) /hpf Alcohol, Quantitative (0-10) mg/dL 09/02/18 09/02/18 09/02/18 Range/Units 15:31 15:31 09:30 WBC (4.5-11.0) 10^3/uL RBC (3.5-6.1) 10^6/uL Hgb (14.0-18.0) g/dL Hct (42.0-52.0) % MCV (80.0-105.0) fl MCH (25.0-35.0) pg MCHC (31.0-37.0) g/dl RDW (11.5-14.5) % Plt Count (120.0-450.0) 10^3/uL MPV (7.0-11.0) fl Gran % (50.0-68.0) % Lymph % (Auto) (22.0-35.0) % [place] % (Auto) (1.0-6.0) % Eos % (Auto) (1.5-5.0) % Baso % (Auto) (0.0-3.0) % Gran # (1.4-6.5) Lymph # (Auto) (1.2-3.4) [place] # (Auto) (0.1-0.6) Eos # (Auto) (0.0-0.7) Baso # (Auto) (0.0-2.0) K/mm3 PT (9.4-12.5) SECONDS INR APTT 56.5 H (25.1-36.5) Seconds Sodium (132-148) mmol/L Potassium (3.6-5.0) mmol/L Chloride (98-107) mmol/L Carbon Dioxide (21-33) mmol/L Anion Gap (10-20) BUN (7-21) mg/dL Creatinine (0.8-1.5) mg/dl Est GFR ( Amer) Est GFR (Non-Af Amer) POC Glucose (mg/dL) (65-110) mg/dL Random Glucose (70-110) mg/dL Hemoglobin A1c (4.2-6.5) % Calcium (8.4-10.5) mg/dL Magnesium (1.7-2.2) mg/dL Total Bilirubin (0.2-1.3) mg/dL AST (17-59) U/L ALT (7-56) U/L Alkaline Phosphatase (38-126) U/L Lactate Dehydrogenase (333-699) U/L Total Creatine Kinase (35-230) U/L Troponin I 3.70 H* D ng/mL Total Protein (5.8-8.3) g/dL Albumin (3.0-4.8) g/dL Globulin gm/dL Albumin/Globulin Ratio (1.1-1.8) Triglycerides (35-160) mg/dL Cholesterol (130-200) mg/dL LDL Cholesterol Direct (0-129) mg/dL HDL Cholesterol (29-60) mg/dL Free T4 (0.78-2.19) ng/dL TSH 3rd Generation (0.46-4.68) mIU/mL Urine Color Yellow (YELLOW) Urine Appearance Clear (CLEAR) Urine pH 6.0 (4.7-8.0) Ur Specific [place] >= 1.030 (1.005-1.035) Urine Protein 100 H (<30 mg/dL) mg/dL Urine Glucose (UA) Negative (NEGATIVE) mg/dL Urine Ketones Negative (NEGATIVE) mg/dL Urine Blood Moderate H (NEGATIVE) Urine Nitrate Negative (NEGATIVE) Urine Bilirubin Negative (NEGATIVE) Urine Urobilinogen 0.2 (<1 E.U./dL) E.U./dL Ur Leukocyte Esterase Negative (NEGATIVE) Marcio/uL Urine RBC 5 - 10 H (0-2) /hpf Urine WBC 0 - 2 (0-6) /hpf Ur Epithelial Cells 0 - 2 (0-5) /hpf Urine Bacteria Few (NONE) /hpf Alcohol, Quantitative (0-10) mg/dL 09/02/18 09/02/18 09/02/18 Range/Units 08:40 08:40 08:40 WBC (4.5-11.0) 10^3/uL RBC (3.5-6.1) 10^6/uL Hgb (14.0-18.0) g/dL Hct (42.0-52.0) % MCV (80.0-105.0) fl MCH (25.0-35.0) pg MCHC (31.0-37.0) g/dl RDW (11.5-14.5) % Plt Count (120.0-450.0) 10^3/uL MPV (7.0-11.0) fl Gran % (50.0-68.0) % Lymph % (Auto) (22.0-35.0) % [place] % (Auto) (1.0-6.0) % Eos % (Auto) (1.5-5.0) % Baso % (Auto) (0.0-3.0) % Gran # (1.4-6.5) Lymph # (Auto) (1.2-3.4) [place] # (Auto) (0.1-0.6) Eos # (Auto) (0.0-0.7) Baso # (Auto) (0.0-2.0) K/mm3 PT (9.4-12.5) SECONDS INR APTT (25.1-36.5) Seconds Sodium (132-148) mmol/L Potassium (3.6-5.0) mmol/L Chloride (98-107) mmol/L Carbon Dioxide (21-33) mmol/L Anion Gap (10-20) BUN (7-21) mg/dL Creatinine (0.8-1.5) mg/dl Est GFR ( Amer) Est GFR (Non-Af Amer) POC Glucose (mg/dL) (65-110) mg/dL Random Glucose (70-110) mg/dL Hemoglobin A1c 6.5 (4.2-6.5) % Calcium (8.4-10.5) mg/dL Magnesium (1.7-2.2) mg/dL Total Bilirubin (0.2-1.3) mg/dL AST (17-59) U/L ALT (7-56) U/L Alkaline Phosphatase (38-126) U/L Lactate Dehydrogenase (333-699) U/L Total Creatine Kinase (35-230) U/L Troponin I ng/mL Total Protein (5.8-8.3) g/dL Albumin (3.0-4.8) g/dL Globulin gm/dL Albumin/Globulin Ratio (1.1-1.8) Triglycerides (35-160) mg/dL Cholesterol (130-200) mg/dL LDL Cholesterol Direct (0-129) mg/dL HDL Cholesterol (29-60) mg/dL Free T4 1.62 (0.78-2.19) ng/dL TSH 3rd Generation 1.77 (0.46-4.68) mIU/mL Urine Color (YELLOW) Urine Appearance (CLEAR) Urine pH (4.7-8.0) Ur Specific [place] (1.005-1.035) Urine Protein (<30 mg/dL) mg/dL Urine Glucose (UA) (NEGATIVE) mg/dL Urine Ketones (NEGATIVE) mg/dL Urine Blood (NEGATIVE) Urine Nitrate (NEGATIVE) Urine Bilirubin (NEGATIVE) Urine Urobilinogen (<1 E.U./dL) E.U./dL Ur Leukocyte Esterase (NEGATIVE) Marcio/uL Urine RBC (0-2) /hpf Urine WBC (0-6) /hpf Ur Epithelial Cells (0-5) /hpf Urine Bacteria (NONE) /hpf Alcohol, Quantitative < 10 (0-10) mg/dL 09/02/18 09/02/18 09/02/18 Range/Units 08:40 08:40 08:40 WBC (4.5-11.0) 10^3/uL RBC (3.5-6.1) 10^6/uL Hgb (14.0-18.0) g/dL Hct (42.0-52.0) % MCV (80.0-105.0) fl MCH (25.0-35.0) pg MCHC (31.0-37.0) g/dl RDW (11.5-14.5) % Plt Count (120.0-450.0) 10^3/uL MPV (7.0-11.0) fl Gran % (50.0-68.0) % Lymph % (Auto) (22.0-35.0) % [place] % (Auto) (1.0-6.0) % Eos % (Auto) (1.5-5.0) % Baso % (Auto) (0.0-3.0) % Gran # (1.4-6.5) Lymph # (Auto) (1.2-3.4) [place] # (Auto) (0.1-0.6) Eos # (Auto) (0.0-0.7) Baso # (Auto) (0.0-2.0) K/mm3 PT 12.9 H (9.4-12.5) SECONDS INR 1.12 APTT 31.0 (25.1-36.5) Seconds Sodium 137 (132-148) mmol/L Potassium 4.3 (3.6-5.0) mmol/L Chloride 102 (98-107) mmol/L Carbon Dioxide 29 (21-33) mmol/L Anion Gap 11 (10-20) BUN 22 H (7-21) mg/dL Creatinine 1.6 H (0.8-1.5) mg/dl Est GFR ( Amer) 52 Est GFR (Non-Af Amer) 43 POC Glucose (mg/dL) (65-110) mg/dL Random Glucose 160 H (70-110) mg/dL Hemoglobin A1c (4.2-6.5) % Calcium 9.4 (8.4-10.5) mg/dL Magnesium 2.2 (1.7-2.2) mg/dL Total Bilirubin 0.8 (0.2-1.3) mg/dL AST 50 (17-59) U/L ALT 32 (7-56) U/L Alkaline Phosphatase 103 (38-126) U/L Lactate Dehydrogenase 629 (333-699) U/L Total Creatine Kinase 119 (35-230) U/L Troponin I 4.93 H* ng/mL Total Protein 8.1 (5.8-8.3) g/dL Albumin 4.1 (3.0-4.8) g/dL Globulin 4.0 gm/dL Albumin/Globulin Ratio 1.0 L (1.1-1.8) Triglycerides 76 (35-160) mg/dL Cholesterol 157 (130-200) mg/dL LDL Cholesterol Direct 84 (0-129) mg/dL HDL Cholesterol 40 (29-60) mg/dL Free T4 (0.78-2.19) ng/dL TSH 3rd Generation (0.46-4.68) mIU/mL Urine Color (YELLOW) Urine Appearance (CLEAR) Urine pH (4.7-8.0) Ur Specific [place] (1.005-1.035) Urine Protein (<30 mg/dL) mg/dL Urine Glucose (UA) (NEGATIVE) mg/dL Urine Ketones (NEGATIVE) mg/dL Urine Blood (NEGATIVE) Urine Nitrate (NEGATIVE) Urine Bilirubin (NEGATIVE) Urine Urobilinogen (<1 E.U./dL) E.U./dL Ur Leukocyte Esterase (NEGATIVE) Marcio/uL Urine RBC (0-2) /hpf Urine WBC (0-6) /hpf Ur Epithelial Cells (0-5) /hpf Urine Bacteria (NONE) /hpf Alcohol, Quantitative (0-10) mg/dL 09/02/ Range/Units 08:40 WBC 13.0 H (4.5-11.0) 10^3/uL RBC 5.45 (3.5-6.1) 10^6/uL Hgb 16.1 (14.0-18.0) g/dL Hct 48.6 (42.0-52.0) % MCV 89.2 (80.0-105.0) fl MCH 29.5 (25.0-35.0) pg MCHC 33.1 (31.0-37.0) g/dl RDW 13.7 (11.5-14.5) % Plt Count 195 (120.0-450.0) 10^3/uL MPV 11.0 (7.0-11.0) fl Gran % 64.4 (50.0-68.0) % Lymph % (Auto) 20.5 L (22.0-35.0) % [place] % (Auto) 14.1 H (1.0-6.0) % Eos % (Auto) 0.8 L (1.5-5.0) % Baso % (Auto) 0.2 (0.0-3.0) % Gran # 8.38 H (1.4-6.5) Lymph # (Auto) 2.7 (1.2-3.4) [place] # (Auto) 1.8 H (0.1-0.6) Eos # (Auto) 0.1 (0.0-0.7) Baso # (Auto) 0.02 (0.0-2.0) K/mm3 PT (9.4-12.5) SECONDS INR APTT (25.1-36.5) Seconds Sodium (132-148) mmol/L Potassium (3.6-5.0) mmol/L Chloride (98-107) mmol/L Carbon Dioxide (21-33) mmol/L Anion Gap (10-20) BUN (7-21) mg/dL Creatinine (0.8-1.5) mg/dl Est GFR ( Amer) Est GFR (Non-Af Amer) POC Glucose (mg/dL) (65-110) mg/dL Random Glucose (70-110) mg/dL Hemoglobin A1c (4.2-6.5) % Calcium (8.4-10.5) mg/dL Magnesium (1.7-2.2) mg/dL Total Bilirubin (0.2-1.3) mg/dL AST (17-59) U/L ALT (7-56) U/L Alkaline Phosphatase (38-126) U/L Lactate Dehydrogenase (333-699) U/L Total Creatine Kinase (35-230) U/L Troponin I ng/mL Total Protein (5.8-8.3) g/dL Albumin (3.0-4.8) g/dL Globulin gm/dL Albumin/Globulin Ratio (1.1-1.8) Triglycerides (35-160) mg/dL Cholesterol (130-200) mg/dL LDL Cholesterol Direct (0-129) mg/dL HDL Cholesterol (29-60) mg/dL Free T4 (0.78-2.19) ng/dL TSH 3rd Generation (0.46-4.68) mIU/mL Urine Color (YELLOW) Urine Appearance (CLEAR) Urine pH (4.7-8.0) Ur Specific [place] (1.005-1.035) Urine Protein (<30 mg/dL) mg/dL Urine Glucose (UA) (NEGATIVE) mg/dL Urine Ketones (NEGATIVE) mg/dL Urine Blood (NEGATIVE) Urine Nitrate (NEGATIVE) Urine Bilirubin (NEGATIVE) Urine Urobilinogen (<1 E.U./dL) E.U./dL Ur Leukocyte Esterase (NEGATIVE) Marcio/uL Urine RBC (0-2) /hpf Urine WBC (0-6) /hpf Ur Epithelial Cells (0-5) /hpf Urine Bacteria (NONE) /hpf Alcohol, Quantitative (0-10) mg/dL Laboratory Results - last 24 hr 09/02/18 09/02/18 09/02/18 08:40 08:40 08:40 WBC 13.0 H RBC 5.45 Hgb 16.1 Hct 48.6 MCV 89.2 MCH 29.5 MCHC 33.1 RDW 13.7 Plt Count 195 MPV 11.0 Gran % 64.4 Lymph % (Auto) 20.5 L [place] % (Auto) 14.1 H Eos % (Auto) 0.8 L Baso % (Auto) 0.2 Gran # 8.38 H Lymph # (Auto) 2.7 [place] # (Auto) 1.8 H Eos # (Auto) 0.1 Baso # (Auto) 0.02 PT 12.9 H INR 1.12 APTT 31.0 Sodium 137 Potassium 4.3 Chloride 102 Carbon Dioxide 29 Anion Gap 11 BUN 22 H Creatinine 1.6 H Est GFR ( Amer) 52 Est GFR (Non-Af Amer) 43 POC Glucose (mg/dL) Random Glucose 160 H Hemoglobin A1c Calcium 9.4 Magnesium 2.2 Total Bilirubin 0.8 AST 50 ALT 32 Alkaline Phosphatase 103 Lactate Dehydrogenase 629 Total Creatine Kinase 119 Troponin I 4.93 H* Total Protein 8.1 Albumin 4.1 Globulin 4.0 Albumin/Globulin Ratio 1.0 L Triglycerides Cholesterol LDL Cholesterol Direct HDL Cholesterol Free T4 TSH 3rd Generation Urine Color Urine Appearance Urine pH Ur Specific [place] Urine Protein Urine Glucose (UA) Urine Ketones Urine Blood Urine Nitrate Urine Bilirubin Urine Urobilinogen Ur Leukocyte Esterase Urine RBC Urine WBC Ur Epithelial Cells Urine Bacteria Alcohol, Quantitative 09/02/18 09/02/18 09/02/18 08:40 08:40 08:40 WBC RBC Hgb Hct MCV MCH MCHC RDW Plt Count MPV Gran % Lymph % (Auto) [place] % (Auto) Eos % (Auto) Baso % (Auto) Gran # Lymph # (Auto) [place] # (Auto) Eos # (Auto) Baso # (Auto) PT INR APTT Sodium Potassium Chloride Carbon Dioxide Anion Gap BUN Creatinine Est GFR ( Amer) Est GFR (Non-Af Amer) POC Glucose (mg/dL) Random Glucose Hemoglobin A1c 6.5 Calcium Magnesium Total Bilirubin AST ALT Alkaline Phosphatase Lactate Dehydrogenase Total Creatine Kinase Troponin I Total Protein Albumin Globulin Albumin/Globulin Ratio Triglycerides 76 Cholesterol 157 LDL Cholesterol Direct 84 HDL Cholesterol 40 Free T4 1.62 TSH 3rd Generation 1.77 Urine Color Urine Appearance Urine pH Ur Specific [place] Urine Protein Urine Glucose (UA) Urine Ketones Urine Blood Urine Nitrate Urine Bilirubin Urine Urobilinogen Ur Leukocyte Esterase Urine RBC Urine WBC Ur Epithelial Cells Urine Bacteria Alcohol, Quantitative 09/02/18 09/02/18 09/02/18 08:40 09:30 15:31 WBC RBC Hgb Hct MCV MCH MCHC RDW Plt Count MPV Gran % Lymph % (Auto) [place] % (Auto) Eos % (Auto) Baso % (Auto) Gran # Lymph # (Auto) [place] # (Auto) Eos # (Auto) Baso # (Auto) PT INR APTT 56.5 H Sodium Potassium Chloride Carbon Dioxide Anion Gap BUN Creatinine Est GFR ( Amer) Est GFR (Non-Af Amer) POC Glucose (mg/dL) Random Glucose Hemoglobin A1c Calcium Magnesium Total Bilirubin AST ALT Alkaline Phosphatase Lactate Dehydrogenase Total Creatine Kinase Troponin I Total Protein Albumin Globulin Albumin/Globulin Ratio Triglycerides Cholesterol LDL Cholesterol Direct HDL Cholesterol Free T4 TSH 3rd Generation Urine Color Yellow Urine Appearance Clear Urine pH 6.0 Ur Specific [place] >= 1.030 Urine Protein 100 H Urine Glucose (UA) Negative Urine Ketones Negative Urine Blood Moderate H Urine Nitrate Negative Urine Bilirubin Negative Urine Urobilinogen 0.2 Ur Leukocyte Esterase Negative Urine RBC 5 - 10 H Urine WBC 0 - 2 Ur Epithelial Cells 0 - 2 Urine Bacteria Few Alcohol, Quantitative < 10 09/02/18 09/02/18 09/02/18 15:31 16:18 21:50 WBC RBC Hgb Hct MCV MCH MCHC RDW Plt Count MPV Gran % Lymph % (Auto) [place] % (Auto) Eos % (Auto) Baso % (Auto) Gran # Lymph # (Auto) [place] # (Auto) Eos # (Auto) Baso # (Auto) PT INR APTT Sodium Potassium Chloride Carbon Dioxide Anion Gap BUN Creatinine Est GFR ( Amer) Est GFR (Non-Af Amer) POC Glucose (mg/dL) 134 H Random Glucose Hemoglobin A1c Calcium Magnesium Total Bilirubin AST ALT Alkaline Phosphatase Lactate Dehydrogenase Total Creatine Kinase Troponin I 3.70 H* D 2.79 H* D Total Protein Albumin Globulin Albumin/Globulin Ratio Triglycerides Cholesterol LDL Cholesterol Direct HDL Cholesterol Free T4 TSH 3rd Generation Urine Color Urine Appearance Urine pH Ur Specific [place] Urine Protein Urine Glucose (UA) Urine Ketones Urine Blood Urine Nitrate Urine Bilirubin Urine Urobilinogen Ur Leukocyte Esterase Urine RBC Urine WBC Ur Epithelial Cells Urine Bacteria Alcohol, Quantitative 09/02/18 09/03/18 09/03/18 21:50 06:45 06:45 WBC 10.6 RBC 5.25 Hgb 15.6 Hct 46.7 MCV 89.0 MCH 29.7 MCHC 33.4 RDW 13.7 Plt Count 201 MPV 11.0 Gran % 55.7 Lymph % (Auto) 32.5 [place] % (Auto) 10.4 H Eos % (Auto) 1.2 L Baso % (Auto) 0.2 Gran # 5.91 Lymph # (Auto) 3.5 H [place] # (Auto) 1.1 H Eos # (Auto) 0.1 Baso # (Auto) 0.02 PT 12.5 INR 1.09 APTT 61.8 H 33.7 Sodium Potassium Chloride Carbon Dioxide Anion Gap BUN Creatinine Est GFR ( Amer) Est GFR (Non-Af Amer) POC Glucose (mg/dL) Random Glucose Hemoglobin A1c Calcium Magnesium Total Bilirubin AST ALT Alkaline Phosphatase Lactate Dehydrogenase Total Creatine Kinase Troponin I Total Protein Albumin Globulin Albumin/Globulin Ratio Triglycerides Cholesterol LDL Cholesterol Direct HDL Cholesterol Free T4 TSH 3rd Generation Urine Color Urine Appearance Urine pH Ur Specific [place] Urine Protein Urine Glucose (UA) Urine Ketones Urine Blood Urine Nitrate Urine Bilirubin Urine Urobilinogen Ur Leukocyte Esterase Urine RBC Urine WBC Ur Epithelial Cells Urine Bacteria Alcohol, Quantitative 09/03/18 06:45 WBC RBC Hgb Hct MCV MCH MCHC RDW Plt Count MPV Gran % Lymph % (Auto) [place] % (Auto) Eos % (Auto) Baso % (Auto) Gran # Lymph # (Auto) [place] # (Auto) Eos # (Auto) Baso # (Auto) PT INR APTT Sodium 137 Potassium 4.0 Chloride 104 Carbon Dioxide 25 Anion Gap 13 BUN 26 H Creatinine 1.4 Est GFR ( Amer) > 60 Est GFR (Non-Af Amer) 50 POC Glucose (mg/dL) Random Glucose 146 H Hemoglobin A1c Calcium 9.1 Magnesium Total Bilirubin 0.8 AST 60 H ALT 65 H Alkaline Phosphatase 124 Lactate Dehydrogenase Total Creatine Kinase Troponin I Total Protein 7.8 Albumin 3.9 Globulin 3.9 Albumin/Globulin Ratio 1.0 L Triglycerides Cholesterol LDL Cholesterol Direct HDL Cholesterol Free T4 TSH 3rd Generation Urine Color Urine Appearance Urine pH Ur Specific [place] Urine Protein Urine Glucose (UA) Urine Ketones Urine Blood Urine Nitrate Urine Bilirubin Urine Urobilinogen Ur Leukocyte Esterase Urine RBC Urine WBC Ur Epithelial Cells Urine Bacteria Alcohol, Quantitative Radiology Impressions: Radiology Impressions Chest X-Ray 09/02/18 08:34 IMPRESSION: No active disease. Head CT 09/02/18 09:05 IMPRESSION: No acute intracranial pathology. EKG/Cardiology Studies: Cardiology / EKG Studies 09/02/18 08:26 EKG [ELECTROCARDIOGRAM] Stat Comment: Reason For Exam: CHEST PAIN 09/02/18 08:34 ELECTROCARDIOGRAM Stat Comment: Reason For Exam: cp 09/02/18 09:33 EKG [ELECTROCARDIOGRAM] Stat Comment: Reason For Exam: repeat Fingerstick Blood Sugar Results: 134 Review of Systems - Review of Systems Review of Systems: 12 point ROS completed and negative except as described in HPI. Critical Care Progress Note - Nutrition Nutrition: Nutrition Category Date Time Status NPO Diet [DIET] Diets 09/02/18 Dinner Ordered Assessment/Plan - Assessment and Plan (Free Text) Assessment: Mr. Quiroz is a 73 F with PMHx of HTN who presents with irregular cardiac rhythm and NSTEMI. Neuro 09/02/[address] negative: No acute intracranial pathology. - AAOx3 - CIWA protocol 2/2 chronic ETOH use 0 x3 - Aspiration precautions - continue to monitor Cardio 09/02/18 CXR shows Aortic atherosclerotic calcifications. Cardiomediastinal silhouette stably enlarged 09/02/18 EKG showed Atrial flutter with HR of 134. Given 20 mg Cardizem IVP and ASA 325 mg in ED 09/03/18 EKG showed Atrial flutter - Cardiology consulted. Dr. Berumen - cardiac cath this morning, f/u final report - Trop 4.93, 3.70, 2.79 - Heparin drip discontinued overnight - Echo pending - Lipid panel and thyroid studies WNL - Hgba1c 6.5 - Lopressor 50 mg BID with BP holding parameters. - Discontinue ASA 81mg, Plavix 75 mg - Continue Lipitor 20 mg PO, Losartan 25 mg PO - Amiodarone 400 TID for A. flutter today, then begin 200 mg PO daily tomorrow per cardio recs - Tylenol 650 q6 PRN for pain control - coag studies noted - maintain MAP > 65 Nephro - BRENDA 22/1.6 > 26/1.4 - F/u BMP this afternoon - baseline unknown - ETOH negative, UDS pending - Hold all nephrotoxic meds - Renal protection in advance of cath given: NAC 600 PO mg at 6 pm and this morning at 600 am, followed by 2 doses after cath - Will also hydrate with IVF NS 1cc/kg for 6 hours pre-cath, followed up IVF 6 hours post-cath 1cc/kg - continue to monitor in AM CMP Pulm - HOB>35 degrees - Maintain O2> 92% PPx - GI: Pepcid 40 mg PO at bedtime - DVT: SCDs, Hep drip discontinued Dispo: Patient can be downgraded later today after monitoring per Dr. Berumen. Per his recommendations, patient is to start Eliquis 5 mg BID, Losartan 25 mg PO, Lopressor 50 mg BID, Lipitor 20 mg and Amiodraone 200 mg tomorrow. Patient seen, case reviewed and plan approved by Dr. Ar Cardona. Lucio Clay, PGY-1 <Lele Cardona - Last Filed: 09/03/18 18:12> CCU Objective - Vital Signs / Intake & Output Vital Signs (Last 4 hours): Vital Signs Temp Pulse Resp BP Pulse Ox 09/03/18 17:39 91 H 139/115 H 09/03/18 17:38 91 H 139/115 H 09/03/18 15:34 98.9 F 09/03/18 15:01 93 H 19 158/90 H 99 09/03/18 15:00 92 H 99 09/03/18 14:54 93 H 145/107 H 09/03/18 14:30 96 H 27 H 145/107 H 99 Intake and Output (Last 8hrs): Intake & Output 09/03/18 09/03/18 09/03/18 06:59 14:59 22:59 Intake Total 910 Output Total 475 Balance 435 Weight 93.44 kg Intake: IV 460 Bilateral Antecubital 460 Oral 450 Output: Urine 475 Urine, Voided 475 Other: # Bowel Movements 0 - Medications Active Medications: Active Medications Generic Name Dose Route Start Last Admin Trade Name Freq PRN Reason Stop Dose Admin Acetaminophen 650 mg 09/02/18 10:55 09/02/18 22:49 Tylenol 325mg Tab PO 650 mg Q6H PRN Administration Headache Acetylcysteine 3 ml 09/03/18 18:00 Acetylcysteine 20% PO 09/04/18 10:01 BID ALICIA Amiodarone HCl 400 mg 09/02/18 14:00 09/03/18 17:38 Cordarone PO 09/03/18 23:59 400 mg TID ALICIA Administration Amiodarone HCl 200 mg 09/04/18 10:00 Cordarone PO DAILY ALICIA Apixaban 5 mg 09/04/18 10:00 Eliquis PO BID [facility] Protocol Atorvastatin Calcium 20 mg 09/02/18 17:00 09/03/18 17:38 Lipitor PO 20 mg DIN ALICIA Administration Famotidine 40 mg 09/02/18 22:00 09/02/18 22:10 Pepcid PO 40 mg HS ALICIA Administration Insulin Human Regular 0 units 09/02/18 16:30 09/03/18 17:40 Humulin R Low SC Not Given ACHS [facility] Protocol Losartan Potassium 50 mg 09/04/18 10:00 Cozaar PO DAILY [facility] Metoprolol Tartrate 50 mg 09/02/18 18:00 09/03/18 17:39 Lopressor PO 50 mg BID ALICIA Administration - Patient Studies Lab Studies: Lab Studies 09/03/18 09/03/18 09/03/18 Range/Units 15:28 06:45 06:45 WBC (4.5-11.0) 10^3/uL RBC (3.5-6.1) 10^6/uL Hgb (14.0-18.0) g/dL Hct (42.0-52.0) % MCV (80.0-105.0) fl MCH (25.0-35.0) pg MCHC (31.0-37.0) g/dl RDW (11.5-14.5) % Plt Count (120.0-450.0) 10^3/uL MPV (7.0-11.0) fl Gran % (50.0-68.0) % Lymph % (Auto) (22.0-35.0) % [place] % (Auto) (1.0-6.0) % Eos % (Auto) (1.5-5.0) % Baso % (Auto) (0.0-3.0) % Gran # (1.4-6.5) Lymph # (Auto) (1.2-3.4) [place] # (Auto) (0.1-0.6) Eos # (Auto) (0.0-0.7) Baso # (Auto) (0.0-2.0) K/mm3 PT 12.5 (9.4-12.5) SECONDS INR 1.09 APTT 33.7 (25.1-36.5) Seconds Sodium 137 137 (132-148) mmol/L Potassium 3.9 4.0 (3.6-5.0) mmol/L Chloride 104 104 (98-107) mmol/L Carbon Dioxide 27 25 (21-33) mmol/L Anion Gap 10 13 (10-20) BUN 25 H 26 H (7-21) mg/dL Creatinine 1.4 1.4 (0.8-1.5) mg/dl Est GFR ( Amer) > 60 > 60 Est GFR (Non-Af Amer) 50 50 Random Glucose 125 H 146 H (70-110) mg/dL Calcium 8.8 9.1 (8.4-10.5) mg/dL Total Bilirubin 0.8 (0.2-1.3) mg/dL AST 60 H (17-59) U/L ALT 65 H (7-56) U/L Alkaline Phosphatase 124 (38-126) U/L Troponin I ng/mL Total Protein 7.8 (5.8-8.3) g/dL Albumin 3.9 (3.0-4.8) g/dL Globulin 3.9 gm/dL Albumin/Globulin Ratio 1.0 L (1.1-1.8) 09/03/18 09/02/18 09/02/18 Range/Units 06:45 21:50 21:50 WBC 10.6 (4.5-11.0) 10^3/uL RBC 5.25 (3.5-6.1) 10^6/uL Hgb 15.6 (14.0-18.0) g/dL Hct 46.7 (42.0-52.0) % MCV 89.0 (80.0-105.0) fl MCH 29.7 (25.0-35.0) pg MCHC 33.4 (31.0-37.0) g/dl RDW 13.7 (11.5-14.5) % Plt Count 201 (120.0-450.0) 10^3/uL MPV 11.0 (7.0-11.0) fl Gran % 55.7 (50.0-68.0) % Lymph % (Auto) 32.5 (22.0-35.0) % [place] % (Auto) 10.4 H (1.0-6.0) % Eos % (Auto) 1.2 L (1.5-5.0) % Baso % (Auto) 0.2 (0.0-3.0) % Gran # 5.91 (1.4-6.5) Lymph # (Auto) 3.5 H (1.2-3.4) [place] # (Auto) 1.1 H (0.1-0.6) Eos # (Auto) 0.1 (0.0-0.7) Baso # (Auto) 0.02 (0.0-2.0) K/mm3 PT (9.4-12.5) SECONDS INR APTT 61.8 H (25.1-36.5) Seconds Sodium (132-148) mmol/L Potassium (3.6-5.0) mmol/L Chloride (98-107) mmol/L Carbon Dioxide (21-33) mmol/L Anion Gap (10-20) BUN (7-21) mg/dL Creatinine (0.8-1.5) mg/dl Est GFR ( Amer) Est GFR (Non-Af Amer) Random Glucose (70-110) mg/dL Calcium (8.4-10.5) mg/dL Total Bilirubin (0.2-1.3) mg/dL AST (17-59) U/L ALT (7-56) U/L Alkaline Phosphatase (38-126) U/L Troponin I 2.79 H* D ng/mL Total Protein (5.8-8.3) g/dL Albumin (3.0-4.8) g/dL Globulin gm/dL Albumin/Globulin Ratio (1.1-1.8) Laboratory Results - last 24 hr 09/02/18 09/02/18 09/03/18 21:50 21:50 06:45 WBC 10.6 RBC 5.25 Hgb 15.6 Hct 46.7 MCV 89.0 MCH 29.7 MCHC 33.4 RDW 13.7 Plt Count 201 MPV 11.0 Gran % 55.7 Lymph % (Auto) 32.5 [place] % (Auto) 10.4 H Eos % (Auto) 1.2 L Baso % (Auto) 0.2 Gran # 5.91 Lymph # (Auto) 3.5 H [place] # (Auto) 1.1 H Eos # (Auto) 0.1 Baso # (Auto) 0.02 PT INR APTT 61.8 H Sodium Potassium Chloride Carbon Dioxide Anion Gap BUN Creatinine Est GFR ( Amer) Est GFR (Non-Af Amer) Random Glucose Calcium Total Bilirubin AST ALT Alkaline Phosphatase Troponin I 2.79 H* D Total Protein Albumin Globulin Albumin/Globulin Ratio 09/03/18 09/03/18 09/03/18 06:45 06:45 15:28 WBC RBC Hgb Hct MCV MCH MCHC RDW Plt Count MPV Gran % Lymph % (Auto) [place] % (Auto) Eos % (Auto) Baso % (Auto) Gran # Lymph # (Auto) [place] # (Auto) Eos # (Auto) Baso # (Auto) PT 12.5 INR 1.09 APTT 33.7 Sodium 137 137 Potassium 4.0 3.9 Chloride 104 104 Carbon Dioxide 25 27 Anion Gap 13 10 BUN 26 H 25 H Creatinine 1.4 1.4 Est GFR ( Amer) > 60 > 60 Est GFR (Non-Af Amer) 50 50 Random Glucose 146 H 125 H Calcium 9.1 8.8 Total Bilirubin 0.8 AST 60 H ALT 65 H Alkaline Phosphatase 124 Troponin I Total Protein 7.8 Albumin 3.9 Globulin 3.9 Albumin/Globulin Ratio 1.0 L EKG/Cardiology Studies: Cardiology / EKG Studies 09/02/18 21:40 EKG [ELECTROCARDIOGRAM] Stat Comment: Reason For Exam: CP Critical Care Progress Note - Nutrition Nutrition: Nutrition Category Date Time Status Heart Healthy Diet [DIET] Diets 09/03/18 Lunch Active Addendum Addendum: 09/03/18 18:12 ICU Attending Addendum Patient seen and examined. Case reviewed on round with housestaff. Agree with resident note above with the following additions/exceptions: 73M with HTN present with headache found to be in rapid aflutter and have elevate TNI s/p cath today no stent needed to be placed medical mmt as per cardio BB, statin, AMIO, arb eliquis BRENDA need follow up / work up stable for transfer out of ICU Rest of care as above Lele Cardona MD Pulmonary Critical Care and Sleep Medicine
--- NOTE | 2018-09-03 09:16 | CPOSTOP ---
DATE: 09/03/2018 CARDIOVASCULAR LAB POST PROCEDURE NOTE PHYSICIAN: Dr. Citlaly Berumen. DIGITAL PROJECT MANAGER: FREDRICK Hanson. TYPE OF ANESTHESIA: Moderate conscious sedation, total 2 mg of Versed and 125 mcg of fentanyl given periodically. Started 1 mg of Versed and 50 of fentanyl. PRE-PROCEDURE DIAGNOSIS: Unstable angina, non-ST segment myocardial infarction,a flutter new onset PROCEDURE PERFORMED: Left heart catheterization. FINDINGS: Nonobstructive coronary artery disease. FINAL DIAGNOSES: 1- Nonobstructive coronary artery disease. 2-Hypertensive heart disease. 3. Tortous aorta 4- Renal insufficiency. POST PROCEDURE PATIENT CONDITION: Stable. VASCULAR ACCESS SITE: Right femoral artery. CLOSURE DEVICE: AngioSeal. TOTAL RADIATION DOSE: 5877.63 milligray unit. TOTAL FLUORO TIME: 2.4. TOTAL Contrast used :40 CC Lorraine Berumen MD MTDD
[2018-09-03] MEDS: Insulin Reg-LOW-Coverage SC SCH ×3 (09:42→22:20)
--- NOTE | 2018-09-03 10:09 | CARD ---
APPROVED REPORT Date of service: 09/02/2018 EKG Measurement Heart [id number] <Conclusion> Atrial flutter with 4:1 AV conduction Left axis deviation Inferior-posterior infarct, age undetermined Abnormal ECG
--- NOTE | 2018-09-03 13:44 | CP.PCM.PN ---
<Wilfred Diaz - Last Filed: 09/03/18 14:11> Subjective - Date & Time of Evaluation Date of Evaluation: 09/03/18 Time of Evaluation: 07:00 - Subjective Subjective: Pt seen and examined this morning. Pt denies chest pain, SOB, pain at cath site, dizziness, or visual changes. Pt recovering well from cardiac cath today. Objective - Vital Signs/Intake and Output Vital Signs (last 24 hours): Temp Pulse Resp BP Pulse Ox 99.2 F 94 H 17 145/93 H 99 09/03/18 11:55 09/03/18 11:30 09/03/18 11:30 09/03/18 11:30 09/03/18 11:30 Intake and Output: 09/03/18 09/03/18 06:59 18:59 Intake Total 910 Output Total 475 Balance 435 - Medications Medications: Current Medications Acetaminophen (Tylenol 325mg Tab) 650 mg PO Q6H PRN PRN Reason: Headache Last Admin: 09/02/18 22:49 Dose: 650 mg Acetylcysteine (Acetylcysteine 20%) 3 ml PO BID [facility] Stop: 09/04/18 10:01 Amiodarone HCl (Cordarone) 400 mg PO TID [facility] Stop: 09/03/18 23:59 Last Admin: 09/03/18 09:47 Dose: 400 mg Amiodarone HCl (Cordarone) 200 mg PO DAILY [facility] Apixaban (Eliquis) 5 mg PO BID [facility]; Protocol Atorvastatin Calcium (Lipitor) 20 mg PO DIN [facility] Last Admin: 09/02/18 17:12 Dose: 20 mg Famotidine (Pepcid) 40 mg PO HS [facility] Last Admin: 09/02/18 22:10 Dose: 40 mg Sodium Chloride (Sodium Chloride 0.9%) 1,000 mls @ 100 mls/hr IV .Q10H [facility] Stop: 09/03/18 16:00 Last Admin: 09/03/18 05:57 Dose: 100 mls/hr Insulin Human Regular (Humulin R Low) 0 units SC ACHS [facility]; Protocol Last Admin: 09/03/18 09:42 Dose: Not Given Losartan Potassium (Cozaar) 50 mg PO DAILY [facility] Metoprolol Tartrate (Lopressor) 50 mg PO BID [facility] Last Admin: 09/03/18 05:55 Dose: 50 mg - Labs Labs: 09/03/18 06:45 09/03/18 06:45 PT 12.5 SECONDS (9.4-12.5) 09/03/18 06:45 INR 1.09 09/03/18 06:45 APTT 33.7 Seconds (25.1-36.5) 09/03/18 06:45 - Constitutional Appears: No Acute Distress - Head Exam Head Exam: ATRAUMATIC, NORMOCEPHALIC - Eye Exam Eye Exam: EOMI, Normal appearance - ENT Exam ENT Exam: Mucous Membranes Moist - Neck Exam Neck Exam: Full ROM - Respiratory Exam Respiratory Exam: Clear to Ausculation Bilateral, NORMAL BREATHING PATTERN. absent: Accessory Muscle Use - Cardiovascular Exam Cardiovascular Exam: Irregular Rhythm, +S1, +S2, Murmur. absent: Diastolic murmur - GI/Abdominal Exam GI & Abdominal Exam: Soft, Tenderness, Normal Bowel Sounds - Extremities Exam Extremities Exam: Full ROM. absent: Calf Tenderness - Neurological Exam Neurological Exam: Alert, Awake, Oriented x3 Assessment and Plan - Assessment and Plan (Free Text) Assessment: Pt is a 73 yo male with a PMH of HTN who presents with irregular cardiac rhythm and NSTEMI. Plan: NSTEMI - Trop 4.93, 3.70, 2.79 - ECHO: pending official read - HA1C 6.5 - Lopressor 50 mg BID - Lipitor 20 mg PO, - Losartan 25 mg PO - start Amiodarone - Cardiology consulted. Dr. Berumen - cardiac cath this morning, f/u final report Atrial Flutter - pt given 20 mg Cardizem IVP in ED - metoprolol - EKG showed Atrial flutter BRENDA - Cr 1.4 - BUN 26 - Avoid nephrotoxic meds - NS 1cc/kg for 6 hours pre-cath - IVF 6 hours post-cath 1cc/kg Ppx - Pepcid 40 mg PO - SCDs Pt seen, examined, assessment and plan discussed with Indira Diaz PGY1, Internal Medicine Resident <Indira Crocker R - Last Filed: 09/06/18 13:47> Objective - Vital Signs/Intake and Output Vital Signs (last 24 hours): Temp Pulse Resp BP Pulse Ox 98.2 F 91 H 20 140/90 97 09/04/18 06:00 09/04/18 09:37 09/04/18 06:00 09/04/18 09:37 09/04/18 06:00 - Labs Labs: 09/03/18 06:45 09/03/18 15:28 PT 12.5 SECONDS (9.4-12.5) 09/03/18 06:45 INR 1.09 09/03/18 06:45 APTT 33.7 Seconds (25.1-36.5) 09/03/18 06:45 Attending/Attestation - Attestation I have personally seen and examined this patient.: Yes I have fully participated in the care of the patient.: Yes I have reviewed all pertinent clinical information, including history, physical exam and plan: Yes Notes (Text): please note that this note is for 09/03/18 Patient seen and examined by me with resident at 9:40 AM on 09/03/18. Case including HPI, physical exam, and assessment and plan discussed with resident. Agree with above with following additions/corrections. Patient is a 73-year-old male with past medical history significant for hypertension that presented to the emergency room "not feeling right." Patient states he is feeling much better. States he has some tenderness on his posterior scalp. Patient is status post cardiac catheterization. Patient denies any pain at his right groin site where he had the cardiac catheterization. No chest pain or shortness of breath. No headaches or dizziness. No lightheadedness. No change in vision. No nausea, vomiting, or abdominal pain. No dysuria. Patient states he has not had a bowel movement since being in the hospital. Physical exam: General: Awake and alert, lying in bed in no acute distress. HEENT: Normocephalic, atraumatic, Extraocular muscles intact, pupils equal and reactive, no scleral icterus. Oropharynx is pink and moist. No pharyngeal erythema or exudate appreciated. Neck is supple. Cardiovascular: Irregular rhythm. No murmus, rubs, or gallops appreciated. Pulmonary: Normal respiratory effort. No rhonchi, rales, or wheezing appreciated. Gastrointestinal: Soft, nondistended. Nontender. Positive bowel sounds all 4 quadrants. No guarding. Musculoskeletal: Moves all extremities. No calf tenderness. No edema appreciated. Dressing right groin clean, dry, and intact. Central nervous system: AAO x3, CN2-12 grossly intact. Dermatologic: Skin warm and dry. Assessment and plan: Patient is a 73-year-old male with past medical history significant for hypertension that presented to the emergency room "not feeling right." 1. Cardiac arrhythmia. Atrial fibrillation/atrial flutter. NSTEMI. Troponins 4.93->3.70->2.79. S/P cardiac catheterization which per collar turner operator showed nonobstructive coronary artery disease, low normal ejection fraction, tortuous hypertensive heart disease. 2-D echo per collar turner operator showed normal chamber size with EF of 50%, mitral regurgitation is trace to mild, trace tricuspid regurgitation, no pericardial effusion. Hgb A1C 6.5. Per collar turner operator, patient to continue Eliquis 5 mg twice a day, losartan 50 mg once a day, amiodarone 200 mg once a day, and metoprolol 25 mg twice a day. Patient to follow-up with collar turner operator in 2 weeks for possible ALEXIA cardioversion. 2. Acute renal insufficiency. Creatinine initially 1.6, now at 1.4. Unsure of baseline creatinine. Continue to monitor 3. Essential hypertension. Continue Cozaar and Metoprolol. 4. Patient is a full code Case was discussed in detail with patient and patient's daughter at bedside. All questions answered.
--- NOTE | 2018-09-03 14:41 | CARD ---
APPROVED REPORT Date of service: 09/03/2018 EXAM: Two-dimensional and M-mode echocardiogram with Doppler and color Doppler. INDICATION Chest Pain Non STEMI 2D DIMENSIONS Left Atrium (2D)3.8 (1.6-4.0cm)IVSd1.9 (0.7-1.1cm) LVDd4.7 (3.9-5.9cm)PWd1.6 (0.7-1.1cm) LVDs3.5 (2.5-4.0cm)FS (%) 25.9 % LVEF (%)50.7 (>50%) M-Mode DIMENSIONS Aortic Root3.10 (2.2-3.7cm)Aortic Cusp Exc.1.90 (1.5-2.0cm) Aortic Valve AoV Peak Hektftsd662.0cm/Grisel Peak GR.8mmHg Mitral Valve E/A ratio0.0 TDI E/Lateral E'0.0E/Medial E'0.0 Tricuspid Valve TR Peak [id number]/sRAP [id number] Peak Gr.10mmHg [id number] LEFT VENTRICLE The left ventricle is normal size. There is moderate concentric left ventricular hypertrophy. Left ventricle systolic function is low normal.EF-50% There is Borderline global hypokinesis of the left ventricle. diastolic function colud not be assessed b/c of a fib No left ventricle thrombus noted on this study. There is no ventricular septal defect visualized. There is no left ventricular aneurysm. There is no mass noted in the left ventricle. RIGHT VENTRICLE The right ventricle is normal size. There is normal right ventricular wall thickness. The right ventricular systolic function is normal. ATRIA The left atrium size is normal. The right atrium size is normal. The interatrial septum is intact with no evidence for an atrial septal defect. AORTIC VALVE The aortic valve is thickened but opens well. No aortic regurgitation is present. There is no aortic valvular stenosis. There is no aortic valvular vegetation. MITRAL VALVE The mitral valve is thickened but opens well. Mitral regurgitation is trace to mild. There is no mitral valve stenosis. There is no evidence of mitral valve prolapse. TRICUSPID VALVE The tricuspid valve leaflets are thickened , but open well. There is trace tricuspid regurgitation.RVSP-20 mmof Hg. There is no tricuspid valve stenosis. There is no tricuspid valve prolapse or vegetation. PULMONIC VALVE The pulmonary valve is normal in structure. There is no pulmonic valvular regurgitation. There is no pulmonic valvular stenosis. GREAT VESSELS The aortic root is normal in size. The ascending aorta is normal in size. The pulmonary artery is normal. The IVC is normal in size and collapses >50% with inspiration. PERICARDIAL EFFUSION There is no pleural effusion. There is no pericardial effusion. <Conclusion> Normal chamber size.EF-50% Mitral regurgitation is trace to mild. There is trace tricuspid regurgitation.RVSP-20 mmof Hg. There is no pericardial effusion. The IVC is normal in size and collapses >50% with inspiration.
--- NOTE | 2018-09-03 15:35 | CP.PCM.DIS ---
Provider - Provider Date of Admission: 09/02/18 10:31 Attending physician: Indira Crocker DO Consults: 09/02/18 09:59 Consult [Physician Consult] Routine Comment: Consulting Provider: Lorraine Beruemn Consulting Physician: Lorraine Berumen Reason for Consult: NSTEMI, new onset aflutter Time Spent in preparation of Discharge (in minutes): 40 Diagnosis - Discharge Diagnosis (1) NSTEMI (non-ST elevated myocardial infarction) Status: Acute Priority: High (2) HTN (hypertension) Status: Acute Priority: High Hospital Course - Lab Results Lab Results: Most Recent Lab Values WBC 10.6 10^3/uL (4.5-11.0) 09/03/18 06:45 RBC 5.25 10^6/uL (3.5-6.1) 09/03/18 06:45 Hgb 15.6 g/dL (14.0-18.0) 09/03/18 06:45 Hct 46.7 % (42.0-52.0) 09/03/18 06:45 MCV 89.0 fl (80.0-105.0) 09/03/18 06:45 MCH 29.7 pg (25.0-35.0) 09/03/18 06:45 MCHC 33.4 g/dl (31.0-37.0) 09/03/18 06:45 RDW 13.7 % (11.5-14.5) 09/03/18 06:45 Plt Count 201 10^3/uL (120.0-450.0) 09/03/18 06:45 MPV 11.0 fl (7.0-11.0) 09/03/18 06:45 Gran % 55.7 % (50.0-68.0) 09/03/18 06:45 Lymph % (Auto) 32.5 % (22.0-35.0) 09/03/18 06:45 [place] % (Auto) 10.4 % (1.0-6.0) H 09/03/18 06:45 Eos % (Auto) 1.2 % (1.5-5.0) L 09/03/18 06:45 Baso % (Auto) 0.2 % (0.0-3.0) 09/03/18 06:45 Gran # 5.91 (1.4-6.5) 09/03/18 06:45 Lymph # (Auto) 3.5 (1.2-3.4) H 09/03/18 06:45 [place] # (Auto) 1.1 (0.1-0.6) H 09/03/18 06:45 Eos # (Auto) 0.1 (0.0-0.7) 09/03/18 06:45 Baso # (Auto) 0.02 K/mm3 (0.0-2.0) 09/03/18 06:45 PT 12.5 SECONDS (9.4-12.5) 09/03/18 06:45 INR 1.09 09/03/18 06:45 APTT 33.7 Seconds (25.1-36.5) 09/03/18 06:45 Sodium 137 mmol/L (132-148) 09/03/18 06:45 Potassium 4.0 mmol/L (3.6-5.0) 09/03/18 06:45 Chloride 104 mmol/L (98-107) 09/03/18 06:45 Carbon Dioxide 25 mmol/L (21-33) 09/03/18 06:45 Anion Gap 13 (10-20) 09/03/18 06:45 BUN 26 mg/dL (7-21) H 09/03/18 06:45 Creatinine 1.4 mg/dl (0.8-1.5) 09/03/18 06:45 Est GFR ( Amer) > 60 09/03/18 06:45 Est GFR (Non-Af Amer) 50 09/03/18 06:45 POC Glucose (mg/dL) 134 mg/dL (65-110) H 09/02/18 16:18 Random Glucose 146 mg/dL (70-110) H 09/03/18 06:45 Hemoglobin A1c 6.5 % (4.2-6.5) 09/02/18 08:40 Calcium 9.1 mg/dL (8.4-10.5) 09/03/18 06:45 Magnesium 2.2 mg/dL (1.7-2.2) 09/02/18 08:40 Total Bilirubin 0.8 mg/dL (0.2-1.3) 09/03/18 06:45 AST 60 U/L (17-59) H 09/03/18 06:45 ALT 65 U/L (7-56) H 09/03/18 06:45 Alkaline Phosphatase 124 U/L (38-126) 09/03/18 06:45 Lactate Dehydrogenase 629 U/L (333-699) 09/02/18 08:40 Total Creatine Kinase 119 U/L (35-230) 09/02/18 08:40 Troponin I 2.79 ng/mL H* D 09/02/18 21:50 Total Protein 7.8 g/dL (5.8-8.3) 09/03/18 06:45 Albumin 3.9 g/dL (3.0-4.8) 09/03/18 06:45 Globulin 3.9 gm/dL 09/03/18 06:45 Albumin/Globulin Ratio 1.0 (1.1-1.8) L 09/03/18 06:45 Triglycerides 76 mg/dL (35-160) 09/02/18 08:40 Cholesterol 157 mg/dL (130-200) 09/02/18 08:40 LDL Cholesterol Direct 84 mg/dL (0-129) 09/02/18 08:40 HDL Cholesterol 40 mg/dL (29-60) 09/02/18 08:40 Free T4 1.62 ng/dL (0.78-2.19) 09/02/18 08:40 TSH 3rd Generation 1.77 mIU/mL (0.46-4.68) 09/02/18 08:40 Urine Color Yellow (YELLOW) 09/02/18 09:30 Urine Appearance Clear (CLEAR) 09/02/18 09:30 Urine pH 6.0 (4.7-8.0) 09/02/18 09:30 Ur Specific [place] >= 1.030 (1.005-1.035) 09/02/18 09:30 Urine Protein 100 mg/dL (<30 mg/dL) H 09/02/18 09:30 Urine Glucose (UA) Negative mg/dL (NEGATIVE) 09/02/18 09:30 Urine Ketones Negative mg/dL (NEGATIVE) 09/02/18 09:30 Urine Blood Moderate (NEGATIVE) H 09/02/18 09:30 Urine Nitrate Negative (NEGATIVE) 09/02/18 09:30 Urine Bilirubin Negative (NEGATIVE) 09/02/18 09:30 Urine Urobilinogen 0.2 E.U./dL (<1 E.U./dL) 09/02/18 09:30 Ur Leukocyte Esterase Negative Marcio/uL (NEGATIVE) 09/02/18 09:30 Urine RBC 5 - 10 /hpf (0-2) H 09/02/18 09:30 Urine WBC 0 - 2 /hpf (0-6) 09/02/18 09:30 Ur Epithelial Cells 0 - 2 /hpf (0-5) 09/02/18 09:30 Urine Bacteria Few /hpf (NONE) 09/02/18 09:30 Alcohol, Quantitative < 10 mg/dL (0-10) 09/02/18 08:40 - Hospital Course Hospital Course: Upon Admission 73yo male with a PMH of HTN presented to the ED for "not feeling right" since Monday and had been getting progressively worse. Pt complained of R sided chest pain and lightheadedness. He has never had those symptoms before for which he took 2 baby aspirin. He denies shortness of breath, nausea/vomiting/diarrhea, numbness/tingling, dysuria/hematuria, fever or chills. Patient reports he is compliant with his medications and has not seen a habitat biologist in the past. Hospital Course EKG showed that pt was in new onset atrial flutter and pt was given cardizem in the ED. Pt labs showed Troponin of 2.79, 3.70, 4.93. Pt underwent cardiac cath for NSTEMI which showed no significant stenosis and recommend medical management, no stents needed to be placed. Pt was treated with acetylcysteine to prevent contrast induced nephropathy. Pt was counseled on the importance of compliance with antihypertensives. Pt received an ECHO which showed an EF of 50% and normal chamber size. Discharge Pt was advised to take medications as directed. Pt to be discharged taking amiodarone 200mg daily, eliquis 5 BID, lipitor 20 daily, Losartan 25 daily, metoprolol 50 BID. Pt advised to follow up out pt with Dr Berumen, cardiology for a possible cardioversion. Pt also advised to follow up with PMD after discharge. The medication [id number] was discontinued, pt was advised to stop taking the medication. Pt seen, examined, assessment and plan discussed with Dr Indira Diaz PGY1, Internal Medicine Resident - Date & Time of H&P Date of H&P: 09/03/18 Time of H&P: 16:04 Discharge Exam - Head Exam Head Exam: ATRAUMATIC, NORMOCEPHALIC - Eye Exam Eye Exam: EOMI, Normal appearance - ENT Exam ENT Exam: Mucous Membranes Moist - Neck Exam Neck exam: Full Rom - Respiratory Exam Respiratory Exam: NORMAL BREATHING PATTERN. absent: Accessory Muscle Use, Chest Wall Tenderness, Respiratory Distress - Cardiovascular Exam Cardiovascular Exam: Irregular Rhythm, +S1, +S2. absent: Diastolic murmur, Systolic Murmur - GI/Abdominal Exam GI & Abdominal Exam: Normal Bowel Sounds. absent: Tenderness - Extremities Exam Extremities exam: full ROM - Neurological Exam Neurological exam: Alert, Oriented x3 - Psychiatric Exam Psychiatric exam: Normal Affect, Normal Mood - Skin Skin Exam: Dry, Intact, Normal Color, Warm Discharge Plan - Discharge Medications Prescriptions: Amiodarone [Cordarone] 200 mg PO DAILY #30 tab Apixaban [Eliquis] 5 mg PO BID #60 tab Atorvastatin [Lipitor] 20 mg PO DIN #30 tab Losartan [Cozaar] 25 mg PO DAILY #30 tab Metoprolol Tartrate [Lopressor] 50 mg PO BID #60 tab - Follow Up Plan Condition: GOOD Disposition: HOME/ ROUTINE Additional Instructions: Please follow up with your primary care doctor, Dr. Dorantes, within 3-5 days of discharge. Please follow up with Dr. Berumen ([facility]) within 2 weeks for possible cardioversion. Please TAKE ALL MEDICATIONS PRESCRIBED. STOP TAKING YOUR HOME BLOOD PRESSURE MEDICATION ([id number]) YOU HAVE 5 NEW MEDICATIONS THAT YOU MUST TAKE: 1. Metoprolol 50mg (For BLOOD PRESSURE AND HEART RATE) one tab in the morning AND on tab in the evening 2. Losartan 25mg (BLOOD PRESSURE) ONCE PER DAY 3. Amiodarone 200mg (FOR HEART RATE CONTROL) ONCE PER DAY 4. Eliquis 5mg (BLOOD THINNER) IN AM AND PM PER DAY 5. Lipitor 20mg (CHOLESTEROL) ONCE PER DAY Your medicine was delivered to the bedside. If your symptoms return, please go to the nearest emergency department. Referrals: Lorraine Berumen MD [Staff Provider] - Citlaly Dorantes MD [Non-Staff] -
--- NOTE | 2018-09-03 15:43 | PN ---
DATE: 09/03/2018 REASON FOR THE CONSULTATION AND FOLLOWUP: Non-ST segmental myocardial infarction and new onset atrial flutter, possibly. BRIEF HISTORY: This is a 73-year-old male with past medical history of hypertension, who came in to the emergency room with funny sensation in the chest, found to be atrial flutter. Later on troponin is found to be positive 5, maximum of 4.93. The patient underwent cardiac catheterization, nonobstructive coronary artery disease, mild decreased LV function, very tortous aorta and hypertensive heart disease. PLAN: Continue contrast use, discontinue aspirin and discontinue Plavix. We will start Eliquis 5 mg p.o. b.i.d. from tomorrow, amiodarone 200 mg from tomorrow, losartan 25 mg daily and metoprolol 50 mg twice a day. I will get echo. The plan is to continue Eliquis for 2 to 3 weeks and there will ALEXIA cardioversion in 2 to 3 weeks. Discussed with the referring taking care of the patient possible discharge home if repeat blood workup is stable or may be tomorrow. Discussed with team taking care of Mr. Quiroz. Since the blood pressure is elevated, we will give 25 mg of losartan extra dose. Explained to the patient, upon discharge the patient will be continued on amiodarone 200 mg once a day and Eliquis. ALEXIA cardioversion in two weeks. Thank you Dr. Crocker for providing us the opportunity in taking care of the patient, Mahin Quiroz. Lorraine Berumen MD
[2018-09-03 15:47] LABS: BLOOD UREA NITROGEN 25 mg/dL (7-21); CALCIUM 8.8 mg/dL (8.4-10.5); GFR NON-AFRICAN AMERICAN 50
--- NOTE | 2018-09-03 17:06 | CARD ---
APPROVED REPORT Date of service: 09/03/2018 Procedure(s) performed: Left Heart Catheterization HISTORY The patient is a 73 year-old male with a history of : renal failure without dialysis, tobacco history() : The patient is a current smoker , hypertension , dyslipidemia , Non compliance with meds admitted with New onset of A flutter and NSTEMI ( Positive troponin 4.93). Hx of Moderate ETOH abuse.. INDICATION The indication(s) include : non-STEMI . CASE TECHNIQUE The patient was brought urgently to the Cardiac Catheterization Laboratory in a fasting state and was prepped and draped in a sterile manner. The right femoral groin was infiltrated with 2% Lidocaine subcutaneous anesthesia. A 6 Fr x 11 cm Abigail sheath was inserted into the right femoral artery without difficulty. Coronary angiography was performed using coronary diagnostic catheters. The left coronary system was accessed and visualized with a Diagnostic , 6F JL4 CATH DXT 100 CM catheter. The right coronary system was accessed and visualized with a Diagnostic ,6F JR 4 CATH DXT 100 CM catheter. The left ventricle was accessed and visualized with a 6F PIGTAIL 145 CATH DXT 110 CM catheter. Left ventricular/Aortic Valve gradient assessed on pullback. Left ventriculogram was performed in CLEMENTS projection. The patient tolerated the procedure well and there were no complications associated with the procedure. Vessel Analysis The patient's coronary anatomy is right dominant. The left main coronary artery is a large size vessel with diffuse calcification noted throughout this vessel and without significant stenosis. The left main trifurcates to the left anterior descending, circumflex, and ramus. The left anterior descending artery is a medium size vessel with diffuse calcification noted throughout this vessel and without significant stenosis. The first diagonal branch is a medium size vessel with diffuse calcification noted throughout this vessel and without significant stenosis. The second diagonal branch is a medium size vessel with diffuse calcification noted throughout this vessel and without significant stenosis. The circumflex artery is a medium size vessel with diffuse calcification noted throughout this vessel and without significant stenosis. The first obtuse marginal branch is a medium size vessel with diffuse calcification noted throughout this vessel and without significant stenosis. The ramus intermedius artery is a medium size vessel with diffuse calcification noted throughout this vessel and without significant stenosis. The right coronary artery is a large size vessel with diffuse calcification noted throughout this vessel and without significant stenosis. The right posterior descending artery is a medium size vessel with diffuse calcification noted throughout this vessel and without significant stenosis. There is a 50-60% stenosis in the mid segment. The right posterolateral branch is a medium size vessel with diffuse calcification noted throughout this vessel and without significant stenosis. Left Ventricle The left ventricle is borderline enlarged in size with borderline decreased contractility. Non-Ischemic cardiomyopathy. The left ventricular ejection fraction is estimated to be 50%. The left ventricular end diastolic pressure is 20 mmHg. There was no gradient across the aortic valve upon pullback. Conclusion Non Obstructive CAD, limited to R PDA 50-60% mid stenosis. Mild non Ischemic CMP-EF-50%, EDP-20 mmof hg. HTN Heart Disease Tortous aorta A flutter Recommendations Aggressive Medical TherapyCardiac Risk Reduction Program Weight Loss Reduction Program Abstinence of ETOH Continue Beta farideh, amiodarone and eliquis Consider ALEXIA and cardioVersion in 2 weeks. CC; Dr. Dorantes
[2018-09-03] MEDS ORDERED: Acetylcysteine 20% Inhal Soln (4ml) PO SCH (18:00)
[2018-09-04 06:32] VITALS: RESP 20; TEMP 98.2; O2SAT 97
[2018-09-04 09:46] VITALS: BP 140/90; PULSE 91
--- NOTE | 2018-09-04 13:52 | PN ---
DATE: 09/04/2018 REASON FOR CONSULTATION AND FOLLOWUP: Non-ST segment elevation myocardial infarction, new-onset atrial flutter, status post cardiac catheterization, nonobstructive coronary artery disease. SUBJECTIVE: The patient denies any chest pain, shortness of breath, or any palpitation. OBJECTIVE: GENERAL: Not in apparent distress, lying flat in the bed. VITAL SIGNS: Temperature afebrile, heart rate 64, and blood pressure 146/93. HEENT: PERRLA. Extraocular muscles intact. NECK: Supple. No carotid bruit or thyromegaly. CHEST: Clear to auscultation. HEART: S1 and S2 regular. ABDOMEN: Soft. EXTREMITIES: Clubbing and cyanosis negative. LABORATORY DATA: Blood workup as follows; WBC 10.6, hemoglobin 15.6, hematocrit 46.7, and platelet count 201. Chemistry shows sodium 137, potassium 3.9, chloride 104, carbon dioxide 29, anion gap of 10, BUN 25, and creatinine 1.4. Maximum troponin 4.9, trend down to 3.7 yesterday and today is 2.79 as of yesterday. IMPRESSION: A 73-year-old male with past medical history significant for hypertension and noncompliance with medication, admitted with new-onset of atrial fibrillation/flutter, history of alcohol abuse and positive troponin, maximum troponin around 5, 4.93. The patient underwent cardiac catheterization which revealed nonobstructive coronary artery disease, left internal mammary artery to distal right posterior descending artery, small vessels, less than 1.5 mm vessel, low normal ejection fraction, tortous, hypertensive heart disease. The patient had also echocardiography done yesterday after the catheterization that also revealed ejection fraction 50%, normal chamber size, trace tricuspid regurgitation, [id number] mitral regurgitation, RA systolic pressure 20. RECOMMENDATIONS: Continue anticoagulation with Eliquis 5 mg p.o. b.i.d., started losartan 50 mg once a day, amiodarone 200 mg once a day and metoprolol at 25 p.o. b.i.d. History of renal insufficiency. The patient came in with creatinine 1.6, still the creatinine is 1.4, less than admitting. We will discharge home. Follow up in 2 weeks and will schedule ALEXIA cardioversion in 2 weeks. Discussed with the patient. Of importance, right femoral area looks okay and no hematoma and no bruit noted. Okay to be discharged from cardiology point of time. Follow up as outpatient for ALEXIA cardioversion in 2 weeks. Emphasis made to the patient for compliance to the medication. Thank you Dr. Crocker for providing us the opportunity in taking care of the patient, Mahin Quiroz. Lorraine Berumen MD
== END 2018-09-04 12:06 | disposition home or self-care (01) | DRG 281 ==
LOC: ED 08:18 → ERH 10:31 → CCU 11:17 → 2RNO 09-03 23:18
PROVIDERS: ADMIT Internal Medicine; ATTEND Hospitalist
PROC: 4A023N7 Measurement of Cardiac Sampling and Pressure, Left Heart, Percutaneous Approach (ICD-10-PCS; principal; 2018-09-03)
PROC: B2111ZZ Fluoroscopy of Multiple Coronary Arteries using Low Osmolar Contrast (ICD-10-PCS; 2018-09-03)
PROC: B2151ZZ Fluoroscopy of Left Heart using Low Osmolar Contrast (ICD-10-PCS; 2018-09-03)
DX: I21.4 Non-ST elevation (NSTEMI) myocardial infarction (principal); I48.92 Unspecified atrial flutter; I42.9 Cardiomyopathy, unspecified; N17.9 Acute kidney failure, unspecified; E11.9 Type 2 diabetes mellitus without complications; E78.5 Hyperlipidemia, unspecified; F17.290 Nicotine dependence, other tobacco product, uncomplicated; I11.9 Hypertensive heart disease without heart failure; I25.10 Atherosclerotic heart disease of native coronary artery without angina pectoris; I48.91 Unspecified atrial fibrillation; K59.00 Constipation, unspecified; Z79.01 Long term (current) use of anticoagulants; Z79.899 Other long term (current) drug therapy; Z83.3 Family history of diabetes mellitus; Z91.14 Patient's other noncompliance with medication regimen; I08.1 Rheumatic disorders of both mitral and tricuspid valves; E66.9 Obesity, unspecified; Z68.30 Body mass index [BMI] 30.0-30.9, adult

== ENCOUNTER 2018-09-27 09:29 | Day surgery (SDC) | payer BC ==
[2018-09-24 13:58] VITALS: BMI 30.5
--- NOTE | 2018-09-27 11:40 | CARD ---
APPROVED REPORT Date of service: 09/27/2018 EKG Measurement Heart [id number] <Conclusion> Atrial flutter with 4:1 block Nonspecific T wave changes Abnormal ECG
[2018-09-27] MEDS ORDERED: Midazolam 2 MG/2 ML VIAL IV ONE ×4 (12:02→12:21)
[2018-09-27] MEDS ORDERED: Flumazenil 0.1 mg/ml Inj (5ml) IVP ONE (12:06)
[2018-09-27] MEDS ORDERED: Midazolam 2 MG/2 ML VIAL ONE (12:06)
[2018-09-27] MEDS ORDERED: Naloxone 0.4 mg/ml Inj (Adult) ONE (12:06)
[2018-09-27] MEDS ORDERED: Sodium Chloride 0.9% 1,000 ML IV SCH (12:45)
[2018-09-27 14:15] VITALS: TEMP 97.7; O2SAT 97
[2018-09-27 14:41] VITALS: BP 152/108; PULSE 68; RESP 16
--- NOTE | 2018-09-27 14:46 | CARD ---
APPROVED REPORT Date of service: 09/27/2018 EXAM: Two-dimensional and M-mode echocardiogram with Doppler and color Doppler. INDICATION Atrial Fibrillation A-FLUTTER Reason For Test : ALEXIA and cardioversion PROCEDURE After obtaining informed consent, patient underwent transesophageal echo in the Echo Lab. Type of Sedation : Conscious Sedation Sedation was administered by Dr. pulliam. Sedation was achieved with Versed and , Fentanyl 4 mg and 150 mcg intravenously. Transesophageal probe was inserted and advanced into esophagus without difficulty. Echo enhancement indication: R/O Septal defect. Echo enhancement agent administered: Agitated Saline The ALEXIA was performed complications. Synchronized Cardioversion attempted: Successful Synchronized Cardioversion acheived with 200 Joules after first attempt(s). Rhythm following Synchronized Cardioversion: Normal Sinus Rhythm Throughout the procedure, the blood pressure, pulse oximetry, cardiac rhythm, and rate were monitored. The patient tolerated the procedure without adverse effects. Recovery from conscious sedation was uneventful and vital signs were stable. LEFT VENTRICLE The left ventricle is normal size. There is mild to moderate concentric left ventricular hypertrophy. The left ventricular function is normal.EF-55-60% ( afib) There is normal LV segmental wall motion. A fib No left ventricle thrombus noted on this study. There is no ventricular septal defect visualized. There is no left ventricular aneurysm. There is no mass noted in the left ventricle. RIGHT VENTRICLE The right ventricle is normal size. There is normal right ventricular wall thickness. The right ventricular systolic function is normal. ATRIA The left atrium is mildly dilated. The right atrium size is normal. The interatrial septum is intact with no evidence for an atrial septal defect. AORTIC VALVE The aortic valve is mildly thickened. No aortic regurgitation is present. There is no aortic valvular stenosis. There is no aortic valvular vegetation. MITRAL VALVE The mitral valve leaflets are thickened. There is no evidence of mitral valve prolapse. There is no mitral valve stenosis. Mitral regurgitation is moderate.( when systolic BP-150/102) TRICUSPID VALVE The tricuspid valve is normal in structure. There is trace tricuspid regurgitation. There is no tricuspid valve prolapse or vegetation. There is no tricuspid valve stenosis. PULMONIC VALVE The pulmonary valve is normal in structure. There is trace pulmonic valvular regurgitation. There is no pulmonic valvular stenosis. GREAT VESSELS The aortic root is normal in size. The ascending aorta is normal in size. The pulmonary artery is normal. The IVC is normal in size and collapses >50% with inspiration. PERICARDIAL EFFUSION There is no pericardial effusion. There is no pleural effusion. <Conclusion> The left ventricular function is normal.EF-55-60% ( afib) Mitral regurgitation is moderate.( when systolic BP-150/102) There is trace tricuspid regurgitation. There is trace pulmonic valvular regurgitation. The IVC is normal in size and collapses >50% with inspiration. There is no pleural effusion. Mild to moderate plaque in descending aorta. Velocity in ANGÉLICA.0.8 m/s No cotra indication to Cardioversion, 200 Joules Synchronized Cardioversion done, pt converted to NSR. CC; Dr. Perkins.
--- NOTE | 2018-09-27 22:59 | CARD ---
APPROVED REPORT Date of service: 09/27/2018 EKG Measurement Heart [id number] <Conclusion> Sinus bradycardia with 1st degree AV block Left anterior fascicular block T wave abnormality, consider lateral ischemia Abnormal ECG
== END 2018-09-27 15:00 | disposition home or self-care (01) ==
LOC: TEE 09:29 → EDSTATUS 11:00 → TEE 15:00
PROVIDERS: ATTEND Internal Medicine Cardiovascular Disease
DX: I48.91 Unspecified atrial fibrillation (principal); I48.92 Unspecified atrial flutter; I44.0 Atrioventricular block, first degree; I70.0 Atherosclerosis of aorta; I34.0 Nonrheumatic mitral (valve) insufficiency; I10 Essential (primary) hypertension; I25.10 Atherosclerotic heart disease of native coronary artery without angina pectoris
CPT/HCPCS: 92960; 93005; 93312; J2250; J3010; J7030